=== PATIENT | female | born 1995 | race Caucasian/White ===

== ENCOUNTER 2016-12-21 21:30 | Emergency (ER) | payer OTHER ==
[~2016-12-21] VITALS: Ht 167.6 cm; Wt 109.6 kg
[~2016-12-21 21:30] MED LIST: ALBU1AER9 INH; Ibuprofen PO; WSTO TOP
[2016-12-21 21:52] VITALS: TEMP 36.8; Ht 167.6 cm; Wt 109.6 kg
[2016-12-21] MEDS ORDERED: IBUP-1428 PO (22:27)
[2016-12-21] MEDS: SODIUM CHLORIDE 0.9% 1000ML 1,000 ML IV STA ×2 (22:36→23:00)
[2016-12-21 22:56] LABS: BASO % 0.3 %; BASO ABS # 0.04 K/uL (0-0.2); COMPLETE YES; EOS % 0.7 %; HEMATOCRIT 42.1 % (37-47); IG% 0.3 %; LYMPH % 23.8 %; LYMPH ABS # 3.44 K/uL (1.2-3.4); MEAN CELL VOLUME 85.6 fL (80-100); MEAN CORPUSCULAR HEMOGLOBIN 29.5 pg (25-34); MEAN CORPUSCULAR HGB CONC 34.4 g/dl (32-36); MEAN PLATELET VOLUME 12.5 fL (7.4-10.4); MONO % 7.7 %; NEUT % 67.2 %; PLATELET COUNT 271 K/uL (130-400); RED BLOOD COUNT 4.92 M/uL (4.2-5.4); WHITE BLOOD COUNT 14.46 K/uL (4.8-10.8)
[2016-12-21 23:06] LABS: MANUAL MICROSCOPIC REQUIRED? NO; REVIEW REQ? NO; URINE APPEARANCE CLEAR (CLEAR); URINE BILIRUBIN NEG (NEG); URINE COLOR YELLOW; URINE EPITHELIAL CELL AUTO 0-5 /lpf (0-5); URINE NITRITE NEG (NEG); URINE PH 6.5 (4.5-7.5); URINE SPECIFIC GRAVITY 1.012 (1.000-1.030); UROBILINOGEN NEG (NEG); ZZUR CULT IF INDIC CLEAN CATCH NO
[2016-12-21 23:12] LABS: CALCIUM 8.8 mg/dl (8.5-10.1); CREATININE 0.75 mg/dl (0.60-1.20); POTASSIUM 3.5 mmol/L (3.5-5.1)
[2016-12-22] MEDS ORDERED: OPTIRAY 320 IV PRN (00:15)
[2016-12-22] MEDS ORDERED: KETOROLAC TROMETHAMINE 30 MG/ML VIAL IV STA (00:48)
--- NOTE | 2016-12-22 01:17 | EMERGENCY ROOM VISIT NOTE ---
History First contact with patient: 22:26 Chief Complaint: KIDNEY STONE Stated Complaint: POSSIBLE KIDNEY STONE, VOMITING History of Present Illness The patient is a 21 year old female who presents to the Emergency Room with complaints of right-sided flank pain ongoing for the past several weeks. The patient reports that she has had right-sided back pain with radiation into the flank and abdomen for the past several weeks. She states that she has also had nausea and vomiting after eating. She also states that at times, she has the urge to have a bowel movement immediately after eating. The patient does report a history of similar reactions to certain foods, but recently she has been symptomatic no matter what she eats. She does report a history of kidney stones but does not feel similar. She denies any history of abdominal surgeries. She has not seen any other providers for these issues. She rates her overall discomfort a 4/10 and has not been taking anything for pain. She denies urinary symptoms, vaginal discharge, blood in her stools or vomit, chest pain or shortness of breath. Review of Systems A complete 10-point Review of Systems was discussed with the patient, with pertinent positives and negatives listed in the History of Present Illness. All remaining Review of Systems questions can be considered negative unless otherwise specified. Social History Smoking Status: Current Every Day Smoker Current/Historical Medications Scheduled PRN Ibuprofen (Motrin), 800 MG PO Q8H PRN for Pain Allergies Coded Allergies: Thimerosal (Verified Allergy, Unknown, Unknown, 12/21/16) From flu vaccine Physical Exam Vital Signs Date Time Temp Pulse Resp B/P Pulse Ox O2 Delivery O2 Flow Rate FiO2 12/22/16 01:26 86 16 121/76 99 12/22/16 00:46 77 18 127/82 100 Room Air 12/21/16 21:52 36.8 87 20 139/93 98 Room Air Physical Exam VITALS: Vitals are noted on the nurse's note and reviewed by myself. Vital signs stable. GENERAL: This is a 21-year-old female, in no acute distress, nondiaphoretic, well-developed well-nourished. SKIN: Capillary reflex less than 2 seconds. HEART: Regular rate and rhythm without murmurs gallops or rubs. LUNGS: Clear to auscultation bilaterally without wheezes, rales or rhonchi. ABDOMEN: Positive bowel sounds x 4. Soft, with mild tenderness of the right upper quadrant. No guarding or rebound tenderness. Negative Lara sign. MUSCULOSKELETAL: No CVA tenderness. NEURO: Patient was alert and oriented to person place and time. Medical Decision & Procedures ER Provider Diagnostic Interpretation: US RUQ: Liver size is upper limits of normal. Gallbladder within normal limits. No ductal dilatation. Distal pancreas is obscured. Right kidney appears unremarkable. No free fluid. Radiologist: Khris Wheat M.D. CT ABDOMEN & PELVIS: No obstructing radiopaque urolithiasis or secondary sequela. Appendix within normal limits. Gallbladder unremarkable. 5 cm right paraovarian cyst. Indwelling vaginal tampon. Radiologist: Khris Wheat M.D. Laboratory Results 12/21/16 22:37 Red Blood Count 4.92, Mean Corpuscular Volume 85.6, Mean Corpuscular Hemoglobin 29.5, Mean Corpuscular Hemoglobin Concent 34.4, Mean Platelet Volume 12.5, Neutrophils (%) (Auto) 67.2, Lymphocytes (%) (Auto) 23.8, Monocytes (%) (Auto) 7.7, Eosinophils (%) (Auto) 0.7, Basophils (%) (Auto) 0.3, Neutrophils # (Auto) 9.72, Lymphocytes # (Auto) 3.44, Monocytes # (Auto) 1.12, Eosinophils # (Auto) 0.10, Basophils # (Auto) 0.04 12/21/16 22:37 Test 12/21/16 22:10 12/21/16 22:37 Urine Color YELLOW Urine Appearance CLEAR (CLEAR) Urine pH 6.5 (4.5-7.5) Urine Specific [place] 1.012 (1.000-1.030) Urine Protein NEG (NEG) Urine Glucose (UA) NEG (NEG) Urine Ketones NEG (NEG) Urine Occult Blood 3+ (NEG) Urine Nitrite NEG (NEG) Urine Bilirubin NEG (NEG) Urine Urobilinogen NEG (NEG) Urine Leukocyte Esterase NEG (NEG) Urine WBC (Auto) 1-5 /hpf (0-5) Urine RBC (Auto) 0-4 /hpf (0-4) Urine Hyaline Casts (Auto) 0 /lpf (0-5) Urine Epithelial Cells (Auto) 0-5 /lpf (0-5) Urine Bacteria (Auto) NEG (NEG) Urine Test NEG (NEG) White Blood Count 14.46 K/uL (4.8-10.8) Red Blood Count 4.92 M/uL (4.2-5.4) Hemoglobin 14.5 g/dL (12.0-16.0) Hematocrit 42.1 % (37-47) Mean Corpuscular Volume 85.6 fL (80-100) Mean Corpuscular Hemoglobin 29.5 pg (25-34) Mean Corpuscular Hemoglobin Concent 34.4 g/dl (32-36) Platelet Count 271 K/uL (130-400) Mean Platelet Volume 12.5 fL (7.4-10.4) Neutrophils (%) (Auto) 67.2 % Lymphocytes (%) (Auto) 23.8 % Monocytes (%) (Auto) 7.7 % Eosinophils (%) (Auto) 0.7 % Basophils (%) (Auto) 0.3 % Neutrophils # (Auto) 9.72 K/uL (1.4-6.5) Lymphocytes # (Auto) 3.44 K/uL (1.2-3.4) Monocytes # (Auto) 1.12 K/uL (0.11-0.59) Eosinophils # (Auto) 0.10 K/uL (0-0.5) Basophils # (Auto) 0.04 K/uL (0-0.2) RDW Standard Deviation 44.7 fL (36.4-46.3) RDW Coefficient of Variation 14.3 % (11.5-14.5) Immature Granulocyte % (Auto) 0.3 % Immature Granulocyte # (Auto) 0.04 K/uL (0.00-0.02) Anion Gap 10.0 mmol/L (3-11) Est Creatinine Clear Calc Drug Dose 148.7 ml/min Estimated GFR () 132.1 Estimated GFR (Non- 113.9 BUN/Creatinine Ratio 10.0 (10-20) Calcium Level 8.8 mg/dl (8.5-10.1) Total Bilirubin 0.4 mg/dl (0.2-1) Aspartate Amino Transf (AST/SGOT) 11 U/L (15-37) Alanine Aminotransferase (ALT/SGPT) 22 U/L (12-78) Alkaline Phosphatase 121 U/L (45-117) Total Protein 7.5 gm/dl (6.4-8.2) Albumin 3.8 gm/dl (3.4-5.0) Globulin 3.7 gm/dl (2.5-4.0) Albumin/Globulin Ratio 1.0 (0.9-2) Lipase 93 U/L (73-393) Medications Administered Medications (Trade) Dose Ordered Sig/Sandra Route Start Time Stop Time Status Last Admin Dose Admin Sodium Chloride (Nss 1000ml) 1,000 ml @ 999 mls/hr Q1H1M STAT IV 12/21/16 22:36 12/21/16 23:36 DC 12/21/16 23:00 999 MLS/HR Ketorolac Tromethamine (Toradol Inj) 30 mg NOW STAT IV 12/22/16 00:48 12/22/16 00:49 DC 12/22/16 00:48 30 MG Medical Decision Differential diagnosis includes biliary colic, pancreatitis, hepatitis, appendicitis, gastroenteritis, cholecystitis, ovarian cyst, burning torsion, urinary tract infection, kidney stone, pyelonephritis, among others. The patient was evaluated as above. Labs were drawn and IV access was obtained. Imaging studies were performed and read by radiology as above. The patient was medicated with 30 mg Toradol IV and 1 L normal saline solution. The patient was reassessed multiple times during their stay in the emergency department and remained in stable condition. The patient is a 21-year-old female who presents today complaining of right- sided abdominal pain. Labs revealed a mild leukocytosis, possibly secondary to the patient's vomiting. No anemia or concerning electrolyte abnormalities. Lipase was not elevated. LFTs and kidney functions were within normal limits. Urinalysis was not suggestive of infection. There was hematuria, but the patient is currently on her menstrual period. Urine was negative. Right upper quadrant ultrasound was initially performed and read by stat rad with no significant findings. CT of the abdomen and pelvis was then performed and also read by stat rad and did show a right-sided ovarian cyst, but no other concerning findings. The patient's pain may be secondary to the cyst, but it do feel she needs further follow-up and possibly gastroenterology consultation as the pain has been ongoing for such a long time. She will return for worsening symptoms. Based on the patient's presentation, lab results, and imaging studies, I feel the patient is stable for outpatient treatment. Discharge instructions were reviewed with the patient. The patient verbalized understanding of my assessment and treatment plan and was discharged home in good condition. Impression Primary Impression: Right ovarian cyst Departure Information Dispostion Home / Self-Care Condition GOOD Referrals Harry Ellison M.D. (PCP) Patient Instructions My [facility] Additional Instructions You have been treated in the Emergency Department for your Abdominal Pain. Laboratory results and imaging studies have ruled out any emergent causes for your abdominal pain which would warrant admission or surgery. For pain control, you can use the following [id number] medicines (if >12 yo): - Regular strength (325mg/tab) Tylenol (acetaminophen) 2 tabs every 4-6 hours as needed. Do not exceed 12 tablets in a 24 hour period. Avoid taking more than 4 grams (4000 mg) of Tylenol per day. This includes any other sources of acetaminophen you may take on a regular basis. - Regular strength (200 mg/tab) Advil (ibuprofen) 1-2 tabs every 4-6 hours as needed. Do not exceed a dose of 3200 mg per day. Drink plenty of water and stay well hydrated. As with any trip to the Emergency Department, you should follow-up with your Primary Care Provider within 2-3 days from today's visit. Return to the emergency department if your symptoms persist despite treatment plan outlined above or if the following symptoms occur: increased fevers, chills , worsening nausea/vomiting, blood in your stool or urine.
[2016-12-22 01:26] VITALS: BP 121/76; PULSE 86; O2SAT 99
--- NOTE | 2016-12-22 07:03 | DIAGNOSTIC IMAGING REPORT ---
CT OF THE ABDOMEN AND PELVIS WITH CONTRAST CLINICAL HISTORY: Right-sided abdominal pain and vomiting. COMPARISON STUDY: Right upper quadrant ultrasound December 21, 2016. TECHNIQUE: Following IV administration of 93 mL of Optiray-320, axial images of the abdomen and pelvis were obtained from the lung bases to the proximal femurs. Images were reviewed in the axial, sagittal, and coronal planes. IV contrast was administered without complication. CT DOSE: 1207.36 mGy.cm FINDINGS: Liver, spleen, adrenal glands, kidneys and pancreas are normal. There is no biliary or pancreatic ductal dilatation. There is no peripancreatic or pericholecystic infiltration. There is no hydronephrosis. Both nephrograms are symmetric. No urinary calculi are identified. The caliber and wall thickness of small and large bowel are normal. The appendix is normal. There is no lymphadenopathy. There is a 4.8 cm right ovarian or paraovarian cyst. A tampon is in place. Skeletal structures are unremarkable. IMPRESSION: 1. No acute process within the abdomen or pelvis. Normal appendix. 2. No hydronephrosis or urinary calculi identified. 3. 4.8 cm right ovarian/paraovarian cyst. Electronically signed by: Cliff Olson M.D. 12/22/2016 7:01 AM Dictated Date/Time: 12/22/2016 6:57 AM
--- NOTE | 2016-12-22 07:14 | DIAGNOSTIC IMAGING REPORT ---
ULTRASOUND RIGHT UPPER QUADRANT ABDOMEN CLINICAL HISTORY: Right upper quadrant abdominal pain.. COMPARISON STUDY: No priors. TECHNIQUE: Real-time, grayscale, and color flow sonography of the right upper quadrant of the abdomen was performed. Images are reviewed in the transverse and longitudinal planes. FINDINGS: Liver: The liver is normal in size and echotexture. There is no intrahepatic biliary ductal dilatation. The main portal vein is patent. Gallbladder: The gallbladder is normal in appearance. No gallstones are identified. There is no gallbladder wall thickening or pericholecystic fluid. A sonographic Lara's sign is reportedly absent. The common bile duct measures up to 0.3 cm in diameter. Pancreas: Visualized portions of the pancreatic head and body are normal in appearance. Right kidney: Survey images of the right kidney demonstrate normal size and echotexture. There is no hydronephrosis. Ascites: None. IMPRESSION: Unremarkable sonographic assessment of the right upper quadrant. No gallstones are identified. Electronically signed by: Ron Vu M.D. 12/22/2016 7:13 AM Dictated Date/Time: 12/22/2016 7:12 AM
== END 2016-12-22 01:27 | disposition home or self-care (01) ==
LOC: C.EDB 21:32 → C.EDA 12-22 01:27
DX: N83.201 Unspecified ovarian cyst, right side (principal); R11.2 Nausea with vomiting, unspecified; F17.200 Nicotine dependence, unspecified, uncomplicated; Z87.442 Personal history of urinary calculi

== ENCOUNTER 2017-04-09 20:18 | Emergency (ER) | payer OTHER ==
[~2017-04-09] VITALS: Ht 167.6 cm; Wt 107.4 kg
[~2017-04-09 20:18] MED LIST changes: -ALBU1AER9 INH; +IBUP-1428 PO; -Ibuprofen PO; -WSTO TOP
[2017-04-09 20:23] VITALS: TEMP 36.9; Ht 167.6 cm; Wt 107.4 kg
[2017-04-09] MEDS ORDERED: KETOROLAC TROMETHAMINE 30 MG/ML VIAL IV STA (20:46)
[2017-04-09] MEDS ORDERED: SODIUM CHLORIDE 0.9% 1000ML 1,000 ML IV STA (20:46)
[2017-04-09] MEDS ORDERED: HYDROmorphone INJ 1 MG/ML SYR IV STA (20:46)
[2017-04-09] MEDS ORDERED: METOCLOPRAMIDE HCL INJ 5 MG/ML 2 ML VIAL IV STA (20:46)
--- NOTE | 2017-04-09 20:52 | EMERGENCY ROOM VISIT NOTE ---
History Report prepared by Bentley: Miguel Pang Under the Supervision of: Dr. Kleber Arana M.D. First contact with patient: 20:40 Chief Complaint: NECK PAIN Stated Complaint: NECK PAIN RADIATING DOWN R SIDE History of Present Illness The patient is a 22 year old female who presents to the Emergency Room with complaints of intermittent neck pain that started last night. She describes the pain as cramping in nature and rates her discomfort as an 8/10 in severity. The pain radiates through the right side of her neck to her back. The patient reports she had a ovarian cyst surgically removed [address] Fermin. She has been taking Tylenol with Codeine with no relief. The patient admits that she has been experiencing some abdominal pain and has not had a bowel movement since before her surgery. She denies any history of other abdominal surgeries. Source of History: patient Onset: last night Position: neck, other Symptom Intensity: 8/10 Quality: cramping Timing: intermittent Associated Symptoms: + abdominal pain, + back pain Review of Systems See HPI for pertinent positives & negatives. A total of 10 systems reviewed and were otherwise negative. Past Medical & Surgical Surgical Problems: (1) History of removal of ovarian cyst Social History Smoking Status: Current Every Day Smoker Alcohol Use: occasionally Drug Use: none Marital Status: single Housing Status: lives with family Occupation Status: employed Current/Historical Medications Scheduled PRN Oxycodone/Acetaminophen 5MG/325MG (Percocet 5MG/325MG), 1-2 TAB PO Q4H PRN for Pain Allergies Coded Allergies: Latex (Unverified Allergy, Unknown, HIVES, 04/09/17) Thimerosal (Verified Allergy, Unknown, Unknown, 04/09/17) From flu vaccine Physical Exam Vital Signs Date Time Temp Pulse Resp B/P Pulse Ox O2 Delivery O2 Flow Rate FiO2 04/10/17 00:16 79 20 126/73 98 Room Air 04/09/17 22:13 63 12 131/83 98 Room Air 04/09/17 21:22 82 04/09/17 21:17 98 Room Air 04/09/17 21:17 98 Room Air 04/09/17 20:23 36.9 99 18 141/93 99 Room Air Physical Exam GENERAL: Patient is a healthy-appearing well-nourished HEAD: Normocephalic atraumatic EYES: Ocular movements intact pupils equal and react to light OROPHARYNX mucous membranes are moist no exudates present no erythema or edema present NECK: Supple no nuchal rigidity CHEST: Good equal expansion LUNGS: Clear and equal to auscultation CARDIAC: Normal S1 and S2 ABDOMEN: Abdominal pain. no guarding BACK: No CVA tenderness EXTREMITIES: No pain upon palpation normal muscle strength in all groups no clubbing cyanosis or edema NEURO: Patient is following commands is answering questions appropriately. Alert and oriented x3 Cranial Nerves 2-12 grossly intact Medical Decision & Procedures ER Provider Diagnostic Interpretation: Radiology results as stated below per my review and radiologist interpretation: SINGLE VIEW CHEST CLINICAL HISTORY: Atypical chest pain. FINDINGS: An AP, portable, upright chest radiograph is obtained. No prior studies are available for comparison at the time of dictation. The cardiomediastinal silhouette is unremarkable. The lungs and pleural spaces are clear. No pneumothorax is seen. The bony thorax is grossly intact. IMPRESSION: No active disease in the chest. Electronically signed by: Ron Vu M.D. 04/09/2017 10:38 PM Dictated Date/Time: 04/09/2017 10:[address] ABDOMEN & PELVIS: Small amount of free air right upper quadrant adjacent to the liver may be from recent surgical procedure, correlate with history Abdominal solids organs and gallbladder appear within limits No bowel dilation Normal caliber appendix contains oral contrast without secondary signs No free fluid Radiologist: Negrito López M.D. Study ready at 23:38 and initial results transmitted 23:56. Laboratory Results 04/09/17 21:15 Red Blood Count 4.84, Mean Corpuscular Volume 88.2, Mean Corpuscular Hemoglobin 29.1, Mean Corpuscular Hemoglobin Concent 33.0, Mean Platelet Volume 11.7, Neutrophils (%) (Auto) 68.7, Lymphocytes (%) (Auto) 23.4, Monocytes (%) (Auto) 6.5, Eosinophils (%) (Auto) 0.8, Basophils (%) (Auto) 0.3, Neutrophils # (Auto) 11.85, Lymphocytes # (Auto) 4.04, Monocytes # (Auto) 1.13, Eosinophils # (Auto) 0.14, Basophils # (Auto) 0.05 04/09/17 21:15 Test 04/09/17 21:15 04/09/17 21:23 04/09/17 21:40 White Blood Count 17.26 K/uL (4.8-10.8) Red Blood Count 4.84 M/uL (4.2-5.4) Hemoglobin 14.1 g/dL (12.0-16.0) Hematocrit 42.7 % (37-47) Mean Corpuscular Volume 88.2 fL (80-100) Mean Corpuscular Hemoglobin 29.1 pg (25-34) Mean Corpuscular Hemoglobin Concent 33.0 g/dl (32-36) Platelet Count 289 K/uL (130-400) Mean Platelet Volume 11.7 fL (7.4-10.4) Neutrophils (%) (Auto) 68.7 % Lymphocytes (%) (Auto) 23.4 % Monocytes (%) (Auto) 6.5 % Eosinophils (%) (Auto) 0.8 % Basophils (%) (Auto) 0.3 % Neutrophils # (Auto) 11.85 K/uL (1.4-6.5) Lymphocytes # (Auto) 4.04 K/uL (1.2-3.4) Monocytes # (Auto) 1.13 K/uL (0.11-0.59) Eosinophils # (Auto) 0.14 K/uL (0-0.5) Basophils # (Auto) 0.05 K/uL (0-0.2) RDW Standard Deviation 45.2 fL (36.4-46.3) RDW Coefficient of Variation 14.0 % (11.5-14.5) Immature Granulocyte % (Auto) 0.3 % Immature Granulocyte # (Auto) 0.05 K/uL (0.00-0.02) Anion Gap 7.0 mmol/L (3-11) Est Creatinine Clear Calc Drug Dose 145.8 ml/min Estimated GFR () 131.1 Estimated GFR (Non- 113.1 BUN/Creatinine Ratio 11.3 (10-20) Calcium Level 9.4 mg/dl (8.5-10.1) Total Bilirubin 0.4 mg/dl (0.2-1) Direct Bilirubin < 0.1 mg/dl (0-0.2) Aspartate Amino Transf (AST/SGOT) 12 U/L (15-37) Alanine Aminotransferase (ALT/SGPT) 23 U/L (12-78) Alkaline Phosphatase 113 U/L (45-117) Total Creatine Kinase 23 U/L (26-192) Creatine Kinase MB < 0.5 ng/ml (0.5-3.6) Creatine Kinase MB Ratio (0-3.0) Troponin I < 0.015 ng/ml (0-0.045) Total Protein 7.6 gm/dl (6.4-8.2) Albumin 3.5 gm/dl (3.4-5.0) Lipase 95 U/L (73-393) Human Chorionic Gonadotropin, Qual NEG (NEG) Bedside D-Dimer 384 ng/mlFEU (0-450) Urine Color ORANGE Urine Appearance CLOUDY (CLEAR) Urine pH 7.5 (4.5-7.5) Urine Specific [place] 1.015 (1.000-1.030) Urine Protein NEG (NEG) Urine Glucose (UA) NEG (NEG) Urine Ketones NEG (NEG) Urine Occult Blood 3+ (NEG) Urine Nitrite NEG (NEG) Urine Bilirubin NEG (NEG) Urine Urobilinogen NEG (NEG) Urine Leukocyte Esterase TRACE (NEG) Urine WBC (Auto) 1-5 /hpf (0-5) Urine RBC (Auto) >30 /hpf (0-4) Urine Hyaline Casts (Auto) 0 /lpf (0-5) Urine Epithelial Cells (Auto) 20-30 /lpf (0-5) Urine Bacteria (Auto) NEG (NEG) Labs reviewed by ED physician. Medications Administered Medications (Trade) Dose Ordered Sig/Sandra Route Start Time Stop Time Status Last Admin Dose Admin Sodium Chloride (Nss 1000ml) 1,000 ml @ 999 mls/hr Q1H1M STAT IV 04/09/17 20:46 04/09/17 21:46 DC 04/09/17 21:18 999 MLS/HR Ketorolac Tromethamine (Toradol Inj) 30 mg NOW STAT IV 04/09/17 20:46 04/09/17 20:50 DC 04/09/17 21:29 30 MG Oxycodone/ Acetaminophen (Percocet 5/ 325MG Home Pack) 1 homepack UD STAT PO 04/10/17 00:04 04/10/17 00:05 DC 04/10/17 00:15 1 HOMEPACK ECG Indication: abdominal pain Rate (beats per minute): 76 Rhythm: sinus with SA Findings: no acute ischemic change, no ectopy ED Course 2042: Past medical records reviewed. The patient was evaluated in room A10. A complete history and physical examination was performed. 2045: Toradol 30 mg IV, NSS 1000 ml @ 999 mls/hr IV. 0004: Oxycodone/ Acetaminophen 1 homepack PO. 0009: Upon reexamination the patient is doing well. I discussed results and treatment plan with the patient. She verbalizes agreement and understanding. The patient is ready for discharge. Medical Decision Medication Reconciliation: I attest that I have personally reviewed the patient' s current medication list Blood Pressure Screening: Patient was found to have an elevated blood pressure and was referred to their primary care doctor for recheck and further treatment Differential diagnosis: Etiologies such as appendicitis, diverticulitis, PUD, biliary pathology, UTI, pancreatitis, obstruction, mesenteric ischemia, aortic pathology, infections, inflammatory bowel disease, renal colic, as well as others were entertained. This is a 22-year-old female who presents emergency department complaining of abdominal pain after recently having ovarian surgery. Serial abdominal examinations were performed on the patient in the emergency department and at no tender the patient exhibit surgical abdomen or abdominal tenderness. Her surgical wounds appear to be healing fine. The patient does have an elevation in her white blood count however has no evidence of infection and upon reporting this to the patient she replied that her white blood cell count is consistently elevated. CT the abdomen pelvis is concerning for free air which I believe would be consistent with the patient's surgery and I also believe that this free air versus possible for the patient feeling pain in her right shoulder and neck. Based on physical exam findings as well as a CAT scan I do believe that the patient is well enough to be discharged home for follow-up with the primary care physician. Patient was in agreement with the treatment plan. Impression Primary Impression: Abdominal pain Scribe Attestation The scribe's documentation has been prepared under my direction and personally reviewed by me in its entirety. I confirm that the note above accurately reflects all work, treatment, procedures, and medical decision making performed by me. Departure Information Dispostion Home / Self-Care Prescriptions Oxycodone/Acetaminophen 5MG/325MG (PERCOCET 5MG/325MG) Tab 1-2 TAB PO Q4H Y for Pain, #14 TAB Prov: Sumit, Kleber M., MD 04/10/17 Referrals No Doctor, Assigned (PCP) Forms HOME CARE DOCUMENTATION FORM, IMPORTANT VISIT INFORMATION, WORK / SCHOOL INSTRUCTIONS Patient Instructions ED Abd Pain Unkn Cause Fem, My [facility] Additional Instructions Need follow up with Dr Ellison You have been examined and treated today on an emergency basis only. This is not a substitute for, or an effort to provide, complete comprehensive medical care. It is impossible to recognize and treat all injuries or illnesses in a single emergency department visit. It is therefore important that you follow up closely with [facility]. Call as soon as possible for an appointment. Thank you for your time and consideration. I look forward to speaking with you again soon. Please don't hesitate to call us if you have any questions. Problem Qualifiers Primary Impression: Abdominal pain Abdominal location: unspecified location Qualified Codes: R10.9 - Unspecified abdominal pain
[2017-04-09] MEDS ORDERED: OPTIRAY 320 IV PRN (21:15)
[2017-04-09 21:17] VITALS: O2SAT 98
[2017-04-09 21:29] LABS: BASO % 0.3 %; BASO ABS # 0.05 K/uL (0-0.2); COMPLETE YES; EOS % 0.8 %; HEMATOCRIT 42.7 % (37-47); IG% 0.3 %; LYMPH % 23.4 %; LYMPH ABS # 4.04 K/uL (1.2-3.4); MEAN CELL VOLUME 88.2 fL (80-100); MEAN CORPUSCULAR HEMOGLOBIN 29.1 pg (25-34); MEAN PLATELET VOLUME 11.7 fL (7.4-10.4); MONO % 6.5 %; NEUT % 68.7 %; PLATELET COUNT 289 K/uL (130-400); RED BLOOD COUNT 4.84 M/uL (4.2-5.4); WHITE BLOOD COUNT 17.26 K/uL (4.8-10.8)
[2017-04-09 21:46] LABS: ALT/SGPT 23 U/L (12-78); BLOOD UREA NITROGEN 9 mg/dl (7-18); BUN/CREATININE RATIO 11.3 (10-20); CARBON DIOXIDE 28 mmol/L (21-32); CHLORIDE 103 mmol/L (98-107); CREATININE 0.75 mg/dl (0.60-1.20); GLUCOSE 88 mg/dl (70-99); POTASSIUM 3.8 mmol/L (3.5-5.1); SODIUM 138 mmol/L (136-145)
[2017-04-09 21:51] LABS: ALKALINE PHOSPHATASE 113 U/L (45-117); AST/SGOT 12 U/L (15-37)
[2017-04-09 21:54] LABS: PREG INTERNAL NEGATIVE QC NEG CLEAR BACKGROUND; PREG INTERNAL POSITIVE QC POS CONTROL LINE
[2017-04-09 22:27] LABS: CALCIUM 9.4 mg/dl (8.5-10.1)
--- NOTE | 2017-04-09 22:39 | DIAGNOSTIC IMAGING REPORT ---
SINGLE VIEW CHEST CLINICAL HISTORY: Atypical chest pain. FINDINGS: An AP, portable, upright chest radiograph is obtained. No prior studies are available for comparison at the time of dictation. The cardiomediastinal silhouette is unremarkable. The lungs and pleural spaces are clear. No pneumothorax is seen. The bony thorax is grossly intact. IMPRESSION: No active disease in the chest. Electronically signed by: Ron Vu M.D. 04/09/2017 10:38 PM Dictated Date/Time: 04/09/2017 10:38 PM
[2017-04-09 23:01] LABS: URINE APPEARANCE CLOUDY (CLEAR); URINE BILIRUBIN NEG (NEG); URINE COLOR ORANGE; URINE EPITHELIAL CELL AUTO 20-30 /lpf (0-5); URINE NITRITE NEG (NEG); URINE PH 7.5 (4.5-7.5); URINE SPECIFIC GRAVITY 1.015 (1.000-1.030); UROBILINOGEN NEG (NEG); ZZUR CULT IF INDIC CLEAN CATCH NO
[2017-04-09 23:25] LABS: MANUAL MICROSCOPIC REQUIRED? NO; REVIEW REQ? NO
[2017-04-10] MEDS ORDERED: PERCOCET HOME PACK PO STA (00:04)
[2017-04-10] MEDS ORDERED: OXYC-57 PO (00:05)
[2017-04-10 00:16] VITALS: BP 126/73; PULSE 79; O2SAT 98
--- NOTE | 2017-04-10 06:54 | DIAGNOSTIC IMAGING REPORT ---
CT OF THE ABDOMEN AND PELVIS WITH CONTRAST CLINICAL HISTORY: Diffuse abd pain s/p oophorectomy COMPARISON STUDY: CT of the abdomen and pelvis December 22, 2016. TECHNIQUE: Following IV administration of 119 mL of Optiray-320, axial images of the abdomen and pelvis were obtained from the lung bases to the proximal femurs. Images were reviewed in the axial, sagittal, and coronal planes. IV contrast was administered without complication. Oral contrast was administered. CT DOSE: 1115.11 mGy.cm FINDINGS: There is a small amount of pneumoperitoneum within the upper abdomen. The liver, spleen, adrenal glands, kidneys and pancreas are normal. There is no evidence for a bowel obstruction. The appendix is normal. There is no fluid collection to suggest an abscess. There is no free fluid. Skeletal structures are unremarkable. There is no lymphadenopathy. There is no hydronephrosis. IMPRESSION: Small amount of pneumoperitoneum which is likely postsurgical. No significant abnormality within the abdomen or pelvis status post recent surgery. Electronically signed by: Cliff Olson M.D. 04/10/2017 6:53 AM Dictated Date/Time: 04/10/2017 6:50 AM
== END 2017-04-10 00:21 | disposition home or self-care (01) ==
LOC: C.EDB 20:19 → C.EDA 04-10 00:21
DX: R10.9 Unspecified abdominal pain (principal); F17.200 Nicotine dependence, unspecified, uncomplicated; Z98.890 Other specified postprocedural states; D72.829 Elevated white blood cell count, unspecified

== ENCOUNTER 2017-06-27 00:27 | Emergency (ER) | payer OTHER ==
[~2017-06-27] VITALS: Ht 167.6 cm; Wt 109.4 kg
[~2017-06-27 00:27] MED LIST changes: -IBUP-1428 PO; +OXYC-57 PO
[2017-06-27 00:31] VITALS: TEMP 36.7; Ht 167.6 cm; Wt 109.4 kg
[2017-06-27 01:04] LABS: URINE APPEARANCE CLOUDY (CLEAR); URINE BILIRUBIN NEG (NEG); URINE COLOR YELLOW; URINE EPITHELIAL CELL AUTO >30 /lpf (0-5); URINE NITRITE NEG (NEG); URINE SPECIFIC GRAVITY 1.025 (1.000-1.030); UROBILINOGEN NEG (NEG); ZZUR CULT IF INDIC CLEAN CATCH YES
[2017-06-27 01:05] LABS: BASO % 0.3 %; BASO ABS # 0.04 K/uL (0-0.2); COMPLETE YES; EOS % 1.4 %; HEMATOCRIT 39.3 % (37-47); IG% 0.2 %; LYMPH % 28.1 %; LYMPH ABS # 4.15 K/uL (1.2-3.4); MEAN CELL VOLUME 86.6 fL (80-100); MEAN CORPUSCULAR HEMOGLOBIN 29.5 pg (25-34); MEAN CORPUSCULAR HGB CONC 34.1 g/dl (32-36); MEAN PLATELET VOLUME 11.5 fL (7.4-10.4); MONO % 7.2 %; NEUT % 62.8 %; PLATELET COUNT 267 K/uL (130-400); RED BLOOD COUNT 4.54 M/uL (4.2-5.4); WHITE BLOOD COUNT 14.78 K/uL (4.8-10.8)
[2017-06-27 01:06] LABS: MANUAL MICROSCOPIC REQUIRED? NO; REVIEW REQ? NO
[2017-06-27 01:22] LABS: BUN/CREATININE RATIO 17.5 (10-20); CREATININE 0.67 mg/dl (0.60-1.20); POTASSIUM 3.8 mmol/L (3.5-5.1)
[2017-06-27] MEDS ORDERED: IBUP-1451 PO (01:28)
[2017-06-27 01:48] LABS: PREG INTERNAL NEGATIVE QC NEG CLEAR BACKGROUND; PREG INTERNAL POSITIVE QC POS CONTROL LINE
--- NOTE | 2017-06-27 04:53 | EMERGENCY ROOM VISIT NOTE ---
History First contact with patient: 00:31 Chief Complaint: ABDOMINAL PAIN Stated Complaint: RIGHT ABD PAIN, NAUSEA Nursing Triage Summary: pt ambulates to triage reports 3-4 weeks of abdominal pain with nausea and diarrhea , pt states "it did not get worse today I am just sick of it and decided to get checked " pt reports hx of ovarian cyst on R side and was drained 1 month ago " this feels like same pain " History of Present Illness The patient is a 22 year old female who presents to the Emergency Room with complaints of nausea, diarrhea and right lower quadrant suprapubic pain for the past month. Patient had a ovarian cyst removed a few months ago. She follows with OB in [place]. Patient is concerned she might be . She is requesting a test. Pain currently 4 out of 10. Nothing makes it better or worse. No recent antibiotics. No well water. Patient states she has 6-7 episodes of diarrhea today that is nonbloody non-mucousy nonblack and tarry in nature. Patient denies chest pain, dyspnea, fevers, vomiting, urinary symptoms, back pain, vaginal itching or discharge. She does not feel at risk for STIs. Review of Systems See HPI for pertinent positives & negatives. A total of 10 systems reviewed and were otherwise negative. Past Medical/Surgical History Surgical Problems: (1) History of removal of ovarian cyst Social History Smoking Status: Current Every Day Smoker Alcohol Use: occasionally Drug Use: none Marital Status: single Housing Status: lives with family Occupation Status: employed Current/Historical Medications Scheduled Ibuprofen Tab (Motrin), 800 MG PO DAILY Sulfa/Trimethoprim (Bactrim Ds 800MG/160MG), 1 TAB PO BID Physical Exam Vital Signs Date Time Temp Pulse Resp B/P (MAP) Pulse Ox O2 Delivery O2 Flow Rate FiO2 06/27/17 03:28 65 18 128/73 97 Room Air 06/27/17 00:31 36.7 88 18 135/88 99 Room Air Physical Exam VITALS: Vitals are noted on the nurse's note and reviewed by myself. Vital signs stable. GENERAL: Pleasant female, in no acute distress, nondiaphoretic, well-developed well-nourished. SKIN: The skin was without rashes, erythema, edema, or bruising. There is no tenting of the skin. Capillary reflex less than 2 seconds. HEAD: Normocephalic atraumatic. EARS: External auditory canals clear, tympanic membranes pearly caicedo without erythema or effusion bilaterally. EYES: Pupils equal round and reactive to light and accommodation. Conjunctivae without injection, sclerae without icterus. Extraocular movements intact. NOSE: Patent, turbinates without inflammation or discharge. MOUTH: Mucous membranes moist. Pharynx without erythema or exudate. Uvula midline. Airway patent. Tongue does not deviate. NECK: Supple without nuchal rigidity. No lymphadenopathy. No thyromegaly. Cervical spine is nontender. No JVD. HEART: Regular rate and rhythm without murmurs gallops or rubs. LUNGS: Clear to auscultation bilaterally without wheezes, rales or rhonchi. No dullness to percussion. No retractions or accessory muscle use. ABDOMEN: Positive bowel sounds x 4. Normal tympanic percussion. Soft, suprapubic right lower quadrant tenderness, protuberant, obese, no CVA tenderness, without masses or organomegaly. Lara sign negative. No guarding or rebound tenderness. MUSCULOSKELETAL: No muscle atrophy, erythema, or edema noted. NEURO: Patient was alert and oriented to person place and time. Normal sensation to light and sharp touch. No focal neurological deficits. Medical Decision & Procedures Laboratory Results 06/27/17 00:50 Red Blood Count 4.54, Mean Corpuscular Volume 86.6, Mean Corpuscular Hemoglobin 29.5, Mean Corpuscular Hemoglobin Concent 34.1, Mean Platelet Volume 11.5, Neutrophils (%) (Auto) 62.8, Lymphocytes (%) (Auto) 28.1, Monocytes (%) (Auto) 7.2, Eosinophils (%) (Auto) 1.4, Basophils (%) (Auto) 0.3, Neutrophils # (Auto) 9.30, Lymphocytes # (Auto) 4.15, Monocytes # (Auto) 1.06, Eosinophils # (Auto) 0.20, Basophils # (Auto) 0.04 06/27/17 00:50 Test 06/27/17 00:15 06/27/17 00:50 Urine Color YELLOW Urine Appearance CLOUDY (CLEAR) Urine pH 6.0 (4.5-7.5) Urine Specific [place] 1.025 (1.000-1.030) Urine Protein NEG (NEG) Urine Glucose (UA) NEG (NEG) Urine Ketones NEG (NEG) Urine Occult Blood NEG (NEG) Urine Nitrite NEG (NEG) Urine Bilirubin NEG (NEG) Urine Urobilinogen NEG (NEG) Urine Leukocyte Esterase TRACE (NEG) Urine WBC (Auto) 10-30 /hpf (0-5) Urine RBC (Auto) 10-30 /hpf (0-4) Urine Hyaline Casts (Auto) 5-10 /lpf (0-5) Urine Epithelial Cells (Auto) >30 /lpf (0-5) Urine Bacteria (Auto) 2+ (NEG) White Blood Count 14.78 K/uL (4.8-10.8) Red Blood Count 4.54 M/uL (4.2-5.4) Hemoglobin 13.4 g/dL (12.0-16.0) Hematocrit 39.3 % (37-47) Mean Corpuscular Volume 86.6 fL (80-100) Mean Corpuscular Hemoglobin 29.5 pg (25-34) Mean Corpuscular Hemoglobin Concent 34.1 g/dl (32-36) Platelet Count 267 K/uL (130-400) Mean Platelet Volume 11.5 fL (7.4-10.4) Neutrophils (%) (Auto) 62.8 % Lymphocytes (%) (Auto) 28.1 % Monocytes (%) (Auto) 7.2 % Eosinophils (%) (Auto) 1.4 % Basophils (%) (Auto) 0.3 % Neutrophils # (Auto) 9.30 K/uL (1.4-6.5) Lymphocytes # (Auto) 4.15 K/uL (1.2-3.4) Monocytes # (Auto) 1.06 K/uL (0.11-0.59) Eosinophils # (Auto) 0.20 K/uL (0-0.5) Basophils # (Auto) 0.04 K/uL (0-0.2) RDW Standard Deviation 43.5 fL (36.4-46.3) RDW Coefficient of Variation 13.7 % (11.5-14.5) Immature Granulocyte % (Auto) 0.2 % Immature Granulocyte # (Auto) 0.03 K/uL (0.00-0.02) Anion Gap 10.0 mmol/L (3-11) Est Creatinine Clear Calc Drug Dose 164.9 ml/min Estimated GFR () 144.6 Estimated GFR (Non- 124.8 BUN/Creatinine Ratio 17.5 (10-20) Calcium Level 9.0 mg/dl (8.5-10.1) Human Chorionic Gonadotropin, Qual NEG (NEG) ED Course Prior records/ancillary studies reviewed. Triage Nursing notes reviewed. The patient's history was concerning for abdominal pain. Differential diagnosis: Etiologies such as stool impaction, cyst, torsion, PID, appendicitis, diverticulitis, PUD, biliary pathology, UTI, pancreatitis, obstruction, mesenteric ischemia, aortic pathology, infections, inflammatory bowel disease, renal colic, as well as others were entertained. Physical examination findings: As above. ER treatment provided: Patient was observed On reassessment the patient felt better. Diagnostics interpreted by me: The labs revealed negative hCG. Urine concerning for infection sent for culture Chronic leukocytosis unchanged per chart review Imaging studies: US PELVIC/ENDOVAG: The uterus is normal in size. The endometrium is normal in thickness. Nabothian cysts. Right ovary measures 2.3 x 1.8 x 2.3 cm and there is a right paraovarian cyst measuring up to 1 cm. Left ovary measures 2.5 x 1.5 x 2.4 cm and contains a dominant follicle measuring 1.4 cm. Blood flow demonstrated in bilateral ovaries. No free fluid in the pelvis. Radiologist: Shon Szymanski MD Exam and history seem consistent with ongoing chronic right lower quadrant superpubic pain. Urine appears contaminated patient has no UTI symptoms. A urine culture was placed. Patient was unable to give a stool specimen. Patient had pain for over a month. I do not believe this is appendicitis. She does CT scan recently that was completely normal. Patient does not want a CT scan today. I felt this is reasonable. Patient was advised to follow back up with her OB doctor and family doctor in a few days or here in the ER sooner for abdominal pain, fevers, vomiting, worsening signs or symptoms or as needed. Patient was unable to give stool specimen despite the fact that she states she' s been having 6-7 episodes a day. Patient did not have acute abdomen on exam. She is well-appearing. She is tolerating fluids. She ate without difficulties. By the evaluation outlined above emergent etiologies such as appendicitis, diverticulitis, PUD, biliary pathology, pancreatitis, obstruction , mesenteric ischemia, aortic pathology, infections, inflammatory bowel disease , renal colic, as well as others were deemed relatively unlikely. The pt informed about the findings as listed above. All questions were answered and pleased with the treatment. Return instructions were outlined and the patient was discharged in stable condition. Outpatient prescription management: HARRY Nur Referral: The patient was referred back to their primary care physician and [employer] for follow-up in 2 to 3 days for a recheck of the current condition. Case reviewed by attending. Medical Decision As above Medication Reconcilliation Current Medication List: was personally reviewed by me Blood Pressure Screening Patient's blood pressure: Normal blood pressure Impression Primary Impression: Right ovarian cyst Additional Impressions: UTI (urinary tract infection) Suprapubic abdominal pain Departure Information Dispostion Home / Self-Care Condition GOOD Prescriptions Sulfa/Trimethoprim (Bactrim Ds 800MG/160MG) Tab 1 TAB PO BID for 3 Days, #6 TAB Prov: Cathryn Simmons .JACK 06/27/17 Referrals Harry Ellison M.D. (PCP) Patient Instructions My [facility] Additional Instructions You chronically have an elevation in the white blood count. Follow-up with family care for this. Repeat pelvic ultrasound in 6 weeks for resolution of cyst. Ibuprofen(Motrin, Advil) may be used for fever or pain. Use 600mg every six hours as needed. Take with food. Avoid using more than 2400mg in a 24 hour period. Do not use 2400mg per day for more than three consecutive days without physician direction. Prolonged inappropriate use can lead to stomach upset or ulcers. (AND/OR) Acetaminophen(Tylenol) may be used for fever or pain. Use 1000mg every six hours as needed. Avoid using more than 3000mg in a 24 hour period. Trimethoprim-Sulfamethoxazole(Bactrim DS): Take one pill twice daily for 3 days for your urine infection. All antibiotics can cause diarrhea. If this occurs and you feel worse or it does not resolve in 1-2 days follow up with your doctor or return to the Emergency Department as this could be signs of serious underlying problems. Any medication can cause an allergic reaction, stop the pills immediately and return to the ER for rash, hives, breathing difficulties, or swelling. Rest and drink plenty of fluids as tolerated. Slow sips of water or sports drinks are recommended instead of large amounts all at once. Continue current medications. Once your stomach is settled start with a clear liquid diet (jello, soup broth, etc.) and then advance as tolerated. You should avoid full, heavy meals for about 24 hrs from the time your symptoms resolved. Return to the ER immediately for worsening or persistent abdominal/back pain, vomiting, fevers, worsening of your condition, or as needed. 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 Problem Qualifiers
[2017-06-27] MEDS ORDERED: SULF800T23 PO (04:54)
[2017-06-27] MEDS ORDERED: SEPTRA DS HOME PACK 1 EA VIAL PO ONE (05:00)
[2017-06-27 05:13] VITALS: BP 114/75; PULSE 71; O2SAT 98
--- NOTE | 2017-06-27 07:28 | DIAGNOSTIC IMAGING REPORT ---
PELVIC COMPLETE NON OB CLINICAL HISTORY: 22 years-old Female presenting with pelvic pain, hx cyst, last menstrual period 06/14/2017. TECHNIQUE: Real-time grayscale and color and spectral Doppler ultrasound imaging of the pelvis was performed first using a transabdominal probe and subsequently transvaginal for better characterization. COMPARISON: CT from 04/09/2017. FINDINGS: Uterus: Normal. Anteverted. The uterus measures 8.5 x 2.1 x 5.0 cm. Endometrial stripe measures 9 mm in thickness. Endometrium normal-appearing. Cervix contains a round hypoechoic avascular slice hypovascular lesion, also likely nabothian cyst. Several additional similar-appearing nabothian cysts also noted. Right adnexa: Right ovary normal. Right ovary measures 2.3 x 1.8 x 2.3 cm. Normal color Doppler flow and arterial and venous waveforms within the ovarian parenchyma. 1 cm anechoic avascular paraovarian cyst. Left adnexa: Left ovary with dominant follicle. Left ovary measures 2.5 x 1.5 x 2.4 cm. Normal color Doppler flow and arterial and venous waveforms within the ovarian parenchyma. Other: No free fluid. IMPRESSION: 1. No significant abnormality identified within the pelvis. 2. 1 cm paraovarian cyst, which is almost certainly benign and of doubtful clinical significance. Electronically signed by: Robbie Ricardo M.D. 06/27/2017 7:27 AM Dictated Date/Time: 06/27/2017 7:23 AM
== END 2017-06-27 05:14 | disposition home or self-care (01) ==
LOC: C.EDB 00:28
DX: N83.201 Unspecified ovarian cyst, right side (principal); N39.0 Urinary tract infection, site not specified; R10.30 Lower abdominal pain, unspecified; R11.0 Nausea; R19.7 Diarrhea, unspecified; F17.200 Nicotine dependence, unspecified, uncomplicated

== ENCOUNTER 2017-11-11 19:25 | Emergency (ER) | payer SELFPAY ==
[~2017-11-11] VITALS: Ht 167.6 cm; Wt 110.0 kg
[~2017-11-11 19:25] MED LIST changes: +IBUP-1451 PO; -OXYC-57 PO
[2017-11-11 19:28] VITALS: TEMP 36.7; Ht 167.6 cm; Wt 110.0 kg
[2017-11-11 19:58] LABS: BASO % 0.4 %; BASO ABS # 0.06 K/uL (0-0.2); EOS ABS # 0.14 K/uL (0-0.5); HEMATOCRIT 41.1 % (37-47); IG# 0.03 K/uL (0.00-0.02); LYMPH % 28.3 %; LYMPH ABS # 4.11 K/uL (1.2-3.4); MEAN CELL VOLUME 87.6 fL (80-100); MEAN CORPUSCULAR HEMOGLOBIN 29.9 pg (25-34); MEAN CORPUSCULAR HGB CONC 34.1 g/dl (32-36); MEAN PLATELET VOLUME 11.6 fL (7.4-10.4); MONO ABS # 1.16 K/uL (0.11-0.59); NEUT % 62.1 %; NEUT ABS # 9.03 K/uL (1.4-6.5); PLATELET COUNT 276 K/uL (130-400); RED CELL DISTRIBUTION WIDTH CV 13.7 % (11.5-14.5); RED CELL DISTRIBUTION WIDTH SD 43.4 fL (36.4-46.3); WHITE BLOOD COUNT 14.53 K/uL (4.8-10.8)
[2017-11-11 20:15] LABS: ALT/SGPT 27 U/L (12-78); AST/SGOT 11 U/L (15-37); BLOOD UREA NITROGEN 10 mg/dl (7-18); CALCIUM 9.2 mg/dl (8.5-10.1); CARBON DIOXIDE 27 mmol/L (21-32); GLUCOSE 91 mg/dl (70-99); LIPASE 100 U/L (73-393); POTASSIUM 3.5 mmol/L (3.5-5.1); SODIUM 137 mmol/L (136-145)
[2017-11-11 20:18] LABS: ALKALINE PHOSPHATASE 121 U/L (45-117); TOTAL PROTEIN 8.2 gm/dl (6.4-8.2)
--- NOTE | 2017-11-11 20:31 | EMERGENCY ROOM VISIT NOTE ---
ED Visit Note EMERGENCY DEPARTMENT PROCEDURE NOTE: I was asked by Dr. Martínez to perform a pelvic exam on this 22-year-old white female patient who had requested a female provider. Please refer to their dictation for the complete history, physical exam, and ED course. EMERGENCY DEPARTMENT COURSE: Pelvic Exam was performed with female nurse cell attendant helper present at all times. External genitalia are normal, no rashes or lesions appreciated. Vagina with scant bloody discharge Cervix is without lesions, no cervical motion tenderness. The uterus is small, nontender The adnexa no masses, nontender Bimanual exam difficult secondary to body habitus. Cervix was cleaned thoroughly with several cotton swabs, then endocervical swab for Chlamydia/ gonorrhea was obtained. Swab for Trichomonas and vaginal Gram stain were also performed.
--- NOTE | 2017-11-11 20:37 | EMERGENCY ROOM VISIT NOTE ---
History Report prepared by Bentley: Yara York Under the Supervision of: Dr. Tyron Martínez D.O. First contact with patient: 19:29 Chief Complaint: URINARY SYMPTOMS Stated Complaint: BURNING AND DISCOFORT WHEN URINATING, LWR BELLY DI Nursing Triage Summary: having lower back pain and lower abdominal pain. urinary frequency and pain with urination for the past couple days History of Present Illness The patient is a 22 year old female who presents to the Emergency Room with complaints of persistent urinary symptoms two days CONTACT REPRESENTATIVE. She notes frequent urination and a burning sensation with urination. She notes abdominal pain and back pain. She currently rates her pain a 6/10 in severity. Her back pain does not radiate. She notes vaginal discharge that is white in color, which began four days ago. She notes that she had similar discharge last month. She has had a UTI in the past, though feels these symptoms are worse. She notes she is currently on her menstrual cycle. Her LNMP was four weeks ago. She has a history of ovarian cysts. She notes a history of laparoscopic surgery to remove a cyst. She notes that she is sexually active with a single partner. She denies any history of STDs. Pt denies headache, change in vision, fevers, chest pain, shortness of breath, nausea, vomiting, diarrhea, and melena. Source of History: patient Onset: two days CONTACT REPRESENTATIVE Position: other (global ) Symptom Intensity: 6/10 Quality: other (urinary symptoms) Timing: other (persistent) Associated Symptoms: + abdominal pain, + back pain, + urinary symptoms ( frequent urination, burning sensation), No fevers, No headache, No chest pain, No SOB, No nausea, No vomiting, No melena, No diarrhea Note: She notes vaginal discharge that is white in color. She denies any changes in vision. Review of Systems See HPI for pertinent positives & negatives. A total of 10 systems reviewed and were otherwise negative. Past Medical & Surgical Medical Problems: (1) Ovarian cyst Surgical Problems: (1) History of removal of ovarian cyst Family History No pertinent family history reported. Social History Smoking Status: Never Smoker Alcohol Use: occasionally Drug Use: none Marital Status: single Housing Status: lives with family Occupation Status: employed Current/Historical Medications Scheduled Ibuprofen Tab (Motrin), 800 MG PO DAILY Sulfa/Trimethoprim (Bactrim Ds 800MG/160MG), 1 TAB PO BID Allergies Coded Allergies: Latex (Unverified Allergy, Unknown, HIVES, 06/27/17) Thimerosal (Verified Allergy, Unknown, Unknown, 06/27/17) From flu vaccine Physical Exam Vital Signs Date Time Temp Pulse Resp B/P (MAP) Pulse Ox O2 Delivery O2 Flow Rate FiO2 11/11/17 22:16 77 18 121/71 98 11/11/17 21:25 70 18 129/80 99 Room Air 11/11/17 19:28 36.7 77 18 137/89 99 Room Air Physical Exam GENERAL: Sitting up in bed, alert, well appearing, well nourished, no distress, non-toxic EYE EXAM: normal conjunctiva. OROPHARYNX: no exudate, no erythema, lips, buccal mucosa, and tongue normal and mucous membranes are moist NECK: supple, no nuchal rigidity, no adenopathy, non-tender LUNGS: Clear to auscultation. Normal chest wall mechanics HEART: no murmurs, S1 normal and S2 normal ABDOMEN: abdomen soft, non-tender, normo-active bowel sounds, no masses, no rebound or guarding. BACK: Back is symmetrical on inspection and there is no deformity, no midline tenderness, no CVA tenderness. Faint reproducible tenderness in right SI joint. : The patient's pelvic exam was normal per PA-C. Please refer to her note SKIN: no rashes and no bruising UPPER EXTREMITIES: upper extremities are grossly normal. LOWER EXTREMITIES: No pitting edema. NEURO EXAM: Normal sensorium, cranial nerves II-XII grossly intact, normal speech, no gross weakness of arms, no gross weakness of legs. Medical Decision & Procedures ER Provider Diagnostic Interpretation: Radiology results as stated below per my review and the radiologist's interpretation: ABD/PELVIS NO IV OR ORAL CONT CT DOSE: 1304.07 mGy.cm HISTORY: Abdominal and pelvic pain r flank pain TECHNIQUE: Multiaxial CT images of the abdomen and pelvis were performed without contrast. A dose lowering technique was utilized adhering to the principles of ALARA. COMPARISON STUDY: 04/09/2017 FINDINGS: Lung bases are clear. Liver spleen and pancreas are unremarkable. Bowel pattern is considered nonobstructive throughout. The appendix is normal. The left kidney is negative for calcification or hydronephrosis. Slight fullness right renal collecting system and right ureter. Bladder is midline. No obvious calcification within the urinary tracts. This may indicate a recently passed calculus versus faint 1 mm calculus at the right ureteral vesicle junction. IMPRESSION: 1. Slight fullness right urinary tract and right renal pelvis. 2. A well-defined obstructing calculus is not seen, with this potentially indicative of a recently passed calculus versus poorly defined 1 mm calculus at the right ureterovesical junction. The above report was generated using voice recognition software. It may contain grammatical, syntax or spelling errors. Electronically signed by: Ghulam Chu M.D. 11/11/2017 9:32 PM Dictated Date/Time: 11/11/2017 9:28 PM Laboratory Results 11/11/17 19:45 Red Blood Count 4.69, Mean Corpuscular Volume 87.6, Mean Corpuscular Hemoglobin 29.9, Mean Corpuscular Hemoglobin Concent 34.1, Mean Platelet Volume 11.6, Neutrophils (%) (Auto) 62.1, Lymphocytes (%) (Auto) 28.3, Monocytes (%) (Auto) 8.0, Eosinophils (%) (Auto) 1.0, Basophils (%) (Auto) 0.4, Neutrophils # (Auto) 9.03, Lymphocytes # (Auto) 4.11, Monocytes # (Auto) 1.16, Eosinophils # (Auto) 0.14, Basophils # (Auto) 0.06 11/11/17 19:45 Test 11/11/17 19:45 11/11/17 20:00 11/11/17 20:20 White Blood Count 14.53 K/uL (4.8-10.8) Red Blood Count 4.69 M/uL (4.2-5.4) Hemoglobin 14.0 g/dL (12.0-16.0) Hematocrit 41.1 % (37-47) Mean Corpuscular Volume 87.6 fL (80-100) Mean Corpuscular Hemoglobin 29.9 pg (25-34) Mean Corpuscular Hemoglobin Concent 34.1 g/dl (32-36) Platelet Count 276 K/uL (130-400) Mean Platelet Volume 11.6 fL (7.4-10.4) Neutrophils (%) (Auto) 62.1 % Lymphocytes (%) (Auto) 28.3 % Monocytes (%) (Auto) 8.0 % Eosinophils (%) (Auto) 1.0 % Basophils (%) (Auto) 0.4 % Neutrophils # (Auto) 9.03 K/uL (1.4-6.5) Lymphocytes # (Auto) 4.11 K/uL (1.2-3.4) Monocytes # (Auto) 1.16 K/uL (0.11-0.59) Eosinophils # (Auto) 0.14 K/uL (0-0.5) Basophils # (Auto) 0.06 K/uL (0-0.2) RDW Standard Deviation 43.4 fL (36.4-46.3) RDW Coefficient of Variation 13.7 % (11.5-14.5) Immature Granulocyte % (Auto) 0.2 % Immature Granulocyte # (Auto) 0.03 K/uL (0.00-0.02) Anion Gap 7.0 mmol/L (3-11) Est Creatinine Clear Calc Drug Dose 138.5 ml/min Estimated GFR () 121.3 Estimated GFR (Non- 104.7 BUN/Creatinine Ratio 12.9 (10-20) Calcium Level 9.2 mg/dl (8.5-10.1) Total Bilirubin 0.4 mg/dl (0.2-1) Direct Bilirubin < 0.1 mg/dl (0-0.2) Aspartate Amino Transf (AST/SGOT) 11 U/L (15-37) Alanine Aminotransferase (ALT/SGPT) 27 U/L (12-78) Alkaline Phosphatase 121 U/L (45-117) Total Protein 8.2 gm/dl (6.4-8.2) Albumin 4.0 gm/dl (3.4-5.0) Lipase 100 U/L (73-393) Urine Color YELLOW Urine Appearance CLOUDY (CLEAR) Urine pH 7.0 (4.5-7.5) Urine Specific Rosalie 1.022 (1.000-1.030) Urine Protein NEG (NEG) Urine Glucose (UA) NEG (NEG) Urine Ketones NEG (NEG) Urine Occult Blood 1+ (NEG) Urine Nitrite NEG (NEG) Urine Bilirubin NEG (NEG) Urine Urobilinogen NEG (NEG) Urine Leukocyte Esterase NEG (NEG) Urine WBC (Auto) 1-5 /hpf (0-5) Urine RBC (Auto) 10-30 /hpf (0-4) Urine Hyaline Casts (Auto) 1-5 /lpf (0-5) Urine Epithelial Cells (Auto) 10-20 /lpf (0-5) Urine Bacteria (Auto) NEG (NEG) Urine Test NEG (NEG) Date/Time Source Procedure Growth Status 11/11/17 20:20 Vaginal Swab Trichomonas Preparation - Final Complete Laboratory results per my review. Medications Administered Medications (Trade) Dose Ordered Sig/Sandra Route Start Time Stop Time Status Last Admin Dose Admin Ceftriaxone Sodium (Rocephin Im) 250 mg NOW STAT IM 11/11/17 20:59 11/11/17 21:00 DC 11/11/17 21:21 250 MG Azithromycin (Zithromax Tab) 1,000 mg NOW STAT PO 11/11/17 20:59 11/11/17 21:00 DC 11/11/17 21:21 1,000 MG Trimethoprim/ Sulfamethoxazole (Septra Ds 800/ 160MG Tab) 1 tab NOW STAT PO 11/11/17 20:59 11/11/17 21:00 DC 11/11/17 21:20 1 TAB ED Course ED COURSE: Vital signs were reviewed and showed normal The patients medical record was reviewed The above diagnostic studies were performed and reviewed. ED treatments and interventions as stated above. 1935: The patient was evaluated in room B10. A complete history and physical examination was performed. 2058: Ordered Trimethoprim/Sulfamethoxazole 1 tab PO, Zithromax 1,000 mg PO, and Rocephin 250 mg IM 2005: I reassessed the patient at this time. She prefers to have a female provider perform her pelvic exam. 2008: I spoke with Johnna Monge PA-C. We discussed the patients case. She will perform the patient's pelvic exam. 2056: I reassessed the patient at this time. She is resting comfortably. 2202: Upon reevaluation, the patient is feeling better and resting comfortably. I discussed my findings with the patient and she understands and agrees with the treatment plan. Based on the patients age, coexisting illnesses, exam and lab findings the decision to treat as an outpatient was made. The patient remained stable while under my care. The patient appeared well at the time of discharge. 2214: Ordered Oxycodone HCl 1 homepack PO Medical Decision Differential diagnoses includes but is not limited to appendicitis, diverticulitis, small bowel obstruction, malignancy, hernia, urinary tract infection, torsion, and ectopic (if female), perforation, trauma, infectious. Patient is a 20-year-old female who presents to ER for dysuria, urgency and frequency with urination. This started 2 days ago. Just complains of right lower back pain. This does appear to be slightly muscle skeletal exam. Lab work is obtained and shows mild leukocytosis of 14,000. BMP all LFTs, bilirubin lipase is unremarkable. UA showed no signs of infection. Did show blood. was negative. She complained of a new vaginal discharge. Pelvic was performed per her request by my PA. This was benign. Cultures were sent. She was covered initially with Rocephin and azithromycin. With the negative urine but the hematuria we elected to perform a CT stone study. At this time there is a questionable 1 mm stone at the distal UVJ. Pain was controlled while in the ER. PDMP and was negative. Patient was given a to go OxyIR. She is discharged with a short course of Bactrim as well she should be start of a UTI which I favor is very unlikely. Do favor the majority of symptoms are caused by possible stone. Discussed with Pt concerning signs and symptoms to watch out for. Pt was instructed to follow up with their PCP and discussed with the patient their option to return to the ED at anytime for persistent or worsening symptoms. The appropriate anticipatory guidance and out- patient management, including indications for return to the emergency department , were explained at length to the patient and understood. [place] Drug Monitoring Program Search Results: no issues identified Medication Reconcilliation Current Medication List: was personally reviewed by me Blood Pressure Screening Patient's blood pressure: Normal blood pressure Consults Time Called: 2005 Consulting Physician: Johnna Monge PA-C Returned Call: 2008 I spoke with Johnna Mnoge PA-C. We discussed the patients case. She will perform the patient's pelvic exam. 2033: I spoke with Johnna Monge PA-C. We discussed the patients case. She states patient's pelvic exam was normal. Impression Primary Impression: Unspecified renal colic Additional Impression: Symptoms involving urinary system Scribe Attestation The scribe's documentation has been prepared under my direction and personally reviewed by me in its entirety. I confirm that the note above accurately reflects all work, treatment, procedures, and medical decision making performed by me. Departure Information Dispostion Home / Self-Care Prescriptions Sulfa/Trimethoprim (Bactrim Ds 800MG/160MG) Tab 1 TAB PO BID for 5 Days, #10 TAB Prov: Tyron Martínez, DO 11/11/17 Referrals Harry Ellison M.D. (PCP) Forms HOME CARE DOCUMENTATION FORM, IMPORTANT VISIT INFORMATION Patient Instructions ED Stone Renal W Colic, My [facility] Additional Instructions Please follow up with your primary care doctor with in the next 24 hours. Any worsening of your symptoms, please return to the ED immediately. This includes any fevers greater than 100.4, worsening pain, chest pain, shortness breath, persistent nausea, vomiting, unable to eat or drink, or any other concerning signs or symptoms from your standpoint. You were also given a prescription for a narcotic. While taking this medication you should also not drive, operate machinery and or work for 12 hours following taking this medication. Please take the antibiotics as prescribed. Problem Qualifiers
[2017-11-11] MEDS ORDERED: SULFAMETHOXAZOLE/TRIMETHOPRIM DS 800/160MG TAB PO STA (20:59)
[2017-11-11] MEDS ORDERED: CEFTRIAXONE SOD 350MG/ML 1 GM VIAL IM STA (20:59)
[2017-11-11] MEDS ORDERED: AZITHROMYCIN 250 MG TAB PO STA (20:59)
--- NOTE | 2017-11-11 21:34 | DIAGNOSTIC IMAGING REPORT ---
ABD/PELVIS NO IV OR ORAL CONT CT DOSE: 1304.07 mGy.cm HISTORY: Abdominal and pelvic pain r flank pain TECHNIQUE: Multiaxial CT images of the abdomen and pelvis were performed without contrast. A dose lowering technique was utilized adhering to the principles of ALARA. COMPARISON STUDY: 04/09/2017 FINDINGS: Lung bases are clear. Liver spleen and pancreas are unremarkable. Bowel pattern is considered nonobstructive throughout. The appendix is normal. The left kidney is negative for calcification or hydronephrosis. Slight fullness right renal collecting system and right ureter. Bladder is midline. No obvious calcification within the urinary tracts. This may indicate a recently passed calculus versus faint 1 mm calculus at the right ureteral vesicle junction. IMPRESSION: 1. Slight fullness right urinary tract and right renal pelvis. 2. A well-defined obstructing calculus is not seen, with this potentially indicative of a recently passed calculus versus poorly defined 1 mm calculus at the right ureterovesical junction. The above report was generated using voice recognition software. It may contain grammatical, syntax or spelling errors. Electronically signed by: Ghulam Chu M.D. 11/11/2017 9:32 PM Dictated Date/Time: 11/11/2017 9:28 PM
[2017-11-11] MEDS ORDERED: SULF800T23 PO (22:07)
[2017-11-11] MEDS ORDERED: OXYCODONE IR HOME PACK PO ONE (22:15)
[2017-11-11 22:16] VITALS: BP 121/71; PULSE 77; O2SAT 98
[2018-05-25] MEDS ORDERED: NITR-5 PO (19:06)
== END 2017-11-11 22:17 | disposition home or self-care (01) ==
LOC: C.EDB 19:25
DX: N23 Unspecified renal colic (principal); R10.30 Lower abdominal pain, unspecified; R30.0 Dysuria; M54.5 Low back pain

== ENCOUNTER → 2018-06-05 | Outpatient (CLI) | payer OTHER | END | disposition home or self-care (01) | LOC: C.LAB1850 07:13 | PROVIDERS: ATTEND Obstetrics & Gynecology | DX: O26.891 Other specified pregnancy related conditions, first trimester (principal); Z3A.00 Weeks of gestation of pregnancy not specified; R10.9 Unspecified abdominal pain ==

== ENCOUNTER → 2018-06-05 | Outpatient (CLI) | payer OTHER | END | disposition home or self-care (01) | LOC: C.PAPS 13:10 | PROVIDERS: ATTEND Obstetrics & Gynecology | DX: Z34.81 Encounter for supervision of other normal pregnancy, first trimester (principal) ==

== ENCOUNTER → 2018-06-23 | Outpatient (CLI) | payer OTHER ==
[2018-06-23 15:38] LABS: BASO % 0.2 %; BASO ABS # 0.03 K/uL (0-0.2); EOS % 0.9 %; EOS ABS # 0.11 K/uL (0-0.5); HEMATOCRIT 39.6 % (37-47); HEMOGLOBIN 13.5 g/dL (12.0-16.0); IG# 0.02 K/uL (0.00-0.02); LYMPH % 19.4 %; LYMPH ABS # 2.48 K/uL (1.2-3.4); MEAN CELL VOLUME 87.4 fL (80-100); MEAN CORPUSCULAR HEMOGLOBIN 29.8 pg (25-34); MEAN CORPUSCULAR HGB CONC 34.1 g/dl (32-36); MEAN PLATELET VOLUME 12.4 fL (7.4-10.4); MONO % 7.6 %; MONO ABS # 0.97 K/uL (0.11-0.59); NEUT % 71.7 %; NEUT ABS # 9.17 K/uL (1.4-6.5); PLATELET COUNT 275 K/uL (130-400); RED CELL DISTRIBUTION WIDTH CV 13.9 % (11.5-14.5); RED CELL DISTRIBUTION WIDTH SD 44.3 fL (36.4-46.3); WHITE BLOOD COUNT 12.78 K/uL (4.8-10.8)
== END | disposition home or self-care (01) ==
LOC: C.LAB1850 14:27
PROVIDERS: ATTEND Obstetrics & Gynecology
DX: Z34.81 Encounter for supervision of other normal pregnancy, first trimester (principal)

== ENCOUNTER 2019-01-29 00:13 | Inpatient (IN) ==
[2019-01-29] MEDS ORDERED: MoRPHine SULFATE 10 MG/ML CARP/VIAL IM STA (00:37)
[2019-01-29] MEDS ORDERED: PROMETHAZINE HCL 25 MG in SODIUM CHLORIDE 0.9% 50 ML IM PRN (00:37)
[2019-01-29] MEDS ORDERED: PROMETHAZINE HCL INJ 25 MG/ML 1 ML VIAL IM PRN (00:49)
[2019-01-29] MEDS ORDERED: PROMETHAZINE HCL 25 MG in SODIUM CHLORIDE 0.9% 50 ML IM STA (00:49)
--- NOTE | 2019-01-29 01:04 | History & Physical Report ---
Date of Service January 29, 2019 Assessment & Plan (1) 39 weeks gestation of : Cervix remains unchanged. However, due to patient's complaint of severe pain, will attempt therapeutic rest. Will also send urinalysis, as a differential includes kidney stone to determine whether this is contributing to her pain. Will plan to recheck cervix after rest. History of Present Illness Chief Complaint: contractions Primary Care Provider: Jack Dmitri 23yo @ 39 12/21 returns to L&D with complaint of contractions every 6 minutes. She states she has severe pain in her low back that wraps around her right side to her front. She describes this pain as "it comes and goes but is also constant." She has had a kidney stone before, but this does not feel like it. + movement. No vaginal bleeding. No leaking of fluid. Allergies Allergy/AdvReac Type Severity Reaction Status Date / Time latex Allergy Intermediate Rash Unverified 01/28/19 18:04 thimerosal Allergy Unknown Unknown Verified 12/06/18 09:39 Home Medications Home Medications Medication Instructions Recorded Confirmed Type vit no.[id number] 1 tab PO DAILY 01/28/19 01/29/19 History [ Vitamin] Patient History Medical History Asthma History of tooth extraction Bladder disorder pt. states she had bladder surgery as a child and bladder remains small Surgical History History of cystoscopy Family History Grandmother (Paternal) Family history of diabetes mellitus Father Hypertension Mother Hypertension Uncle Hypertension Aunt Stroke Social History Preferred Language: Erit[place]an Communication Ability: Effective Visual Impairment: No Limitations Hearing Ability: Normal marital status: Single Feels Safe at Home: Yes Safety Concerns: Feels Safe At This Time Smoking Status: Former smoker Hx Alcohol Use: No Hx Substance Use: No Physical Exam Vital Signs (Past 24 Hours): Last Vital Signs Temp 36.6 C 01/29/19 00:43 Pulse 90 01/29/19 00:32 Resp 20 01/29/19 00:43 BP 131/75 01/29/19 00:32 Physical Exam: Gen: very uncomfortable. AAOx3 CV: RRR L: CTA Abd: soft, gravid Ext: no edema SVE: 3-4/50/-2. Cephalic. Similar to previous exam. FHT: difficult to trace due to patient inability to stay in one position. FHTs in 140-150s. [place]: Q 6-7 min
--- NOTE | 2019-01-29 01:26 | Obstetrical Progress Note ---
Date of Service January 29, 2019 Subjective Limited bedside ultrasound: cephalic, + movement, +cardiac activity, + breathing motion, +tone, adequate appearing amniotic fluid. Placenta anterior/rt lateral. Physical Exam Vital Signs (Past 24 Hours): Last Vital Signs Temp 36.6 C 01/29/19 00:43 Pulse 90 01/29/19 00:32 Resp 20 01/29/19 00:43 BP 131/75 01/29/19 00:32
[2019-01-29 01:30] LABS: Appearance Urine Clear (Clear); Bilirubin Urine Negative (Negative); Blood Urine Negative (Negative); Color Urine Yellow; Glucose Urine UA Negative (Negative); Leukocyte Esterase Urine Negative (Negative); Nitrite Urine Negative (Negative); Protein Urine Negative (Negative); Specific Gravity Urine 1.021 (1.000-1.030); Urobilinogen Urine Negative (Negative); pH Urine 5.5 (4.5-7.5)
[2019-01-29 01:38] LABS: Ketones Urine 3+ (Negative)
[2019-01-29] MEDS ORDERED: PENICILLIN G POTASSIUM 3 MU in DEXTROSE 5% 100 ML IV PRN (01:43)
[2019-01-29] MEDS ORDERED: LACTATED RINGER'S 1,000 ML IV PRN ×2 (01:43→03:00)
[2019-01-29] MEDS ORDERED: OXYTOCIN 30 UNITS/500 ML BAG IV PRN (01:43)
--- NOTE | 2019-01-29 01:43 | Obstetrical Progress Note ---
Date of Service January 29, 2019 Subjective Patient continues to be very uncomfortable. Cervix 4-5/50/-2. Difficult to trace baby due to patient inability to stay in one position, due to her discomfort. FHT in 150s. Will admit to L&D, obtain labs, epidural. Physical Exam Vital Signs (Past 24 Hours): Last Vital Signs Temp 36.6 C 01/29/19 00:43 Pulse 90 01/29/19 00:32 Resp 20 01/29/19 00:43 BP 131/75 01/29/19 00:32
[2019-01-29] MEDS ORDERED: LACTATED RINGER'S 1,000 ML IV SCH ×3 (01:45→18:00)
[2019-01-29] MEDS ORDERED: PENICILLIN G POTASSIUM 6 MU in DEXTROSE 5% 250 ML IV ONE (02:00)
[2019-01-29 02:01] LABS: Hemoglobin 11.7 g/dL (12.0-16.0); Mean Corpuscular Volume 85.2 fL (80-100); Mean Platelet Volume 12.2 fL (7.4-10.4); Platelet Count 294 K/uL (130-400); RDW Coefficient of Variation 13.3 % (11.5-14.5); RDW Standard Deviation 41.1 fL (36.4-46.3); Red Blood Count 4.11 M/uL (4.2-5.4); White Blood Count 18.11 K/uL (4.8-10.8)
[2019-01-29] MEDS ORDERED: BUPIVACAINE 0.25% 30 ML VIAL ONE (02:08)
[2019-01-29] MEDS ORDERED: ePHEDrine sulfate 50 MG/ML AMP ONE (02:08)
[2019-01-29] MEDS ORDERED: fentaNYL citrate 100 MCG/2 ML VIAL ONE ×3 (02:09→05:29)
[2019-01-29] MEDS ORDERED: fentaNYL 2MCG/ML ROPIV 1.25MG/ML 100 ML BAG EPI ONE (02:09)
[2019-01-29 02:11] LABS: Mean Corpuscular Hgb Conc 33.4 g/dL (32-36)
--- NOTE | 2019-01-29 02:18 | Anesthesiology Consultation ---
Date of Service January 29, 2019 Assessment & Plan (1) Encounter for pre-operative examination: Chart Review Chart Review: Patient NOT seen in Pre Admission Testing and Acceptable Risk for Labor Epidural Consults Requested none ASA ASA3 Proposed Anesthesia Anesthesia Type: Labor Epidural Risk / Benefits Reviewed With: PT / POA / Parent / Guardian, Accepts Plan and Informed Consent Obtained NPO Date Last Intake of Fluids: 01/29/19 Time Last Intake of Fluids: 02:45 Date Last Intake of Solids: 01/28/19 Time Last Intake of Solids: 14:00 History Height/Weight Height: 5 ft 5 in Weight: 111.13 kg Allergies Allergy/AdvReac Type Severity Reaction Status Date / Time latex Allergy Intermediate Rash Unverified 01/28/19 18:04 thimerosal Allergy Unknown Unknown Verified 12/06/18 09:39 Medications Home Medications Medication Instructions Recorded Confirmed Last Taken vit no.[id number] 1 tab PO DAILY 01/28/19 01/29/19 01/29/19 [ Vitamin] Active Medications Generic Name Dose Route Start Last Admin Trade Name Freq PRN Reason Stop Dose Admin Lactated Ringer's 1,000 mls @ 999 mls/hr 01/29/19 01:43 01/29/19 02:00 Lr IV 02/28/19 01:42 999 mls/hr .Q1H1M PRN Administration (Pre-Anesthesia) Penicillin G Potassium 6 mu/ 262 mls @ 262 mls/hr 01/29/19 02:00 01/29/19 02:26 Dextrose IV 01/29/19 02:59 262 mls/hr ONE ONE Administration Past Medical History Medical History Asthma History of tooth extraction Bladder disorder pt. states she had bladder surgery as a child and bladder remains small Past Family History Family History Grandmother (Paternal) Family history of diabetes mellitus Father Hypertension Mother Hypertension Uncle Hypertension Aunt Stroke Past Surgical History Surgical History History of cystoscopy Past Anesthesia History No Hx of Anesthesia Complications History of PONV No Motion Sickness Screening History of Motion Sickness: No Social History Smoking Status: Former smoker Hx Alcohol Use: No Hx Substance Use: No substance use type: does not use Review of Systems Patient denies history of abnormal bleeding or bleeding disorder. Patient denies active use of anticoagulants other than low dose aspirin. Patient denies numbness, tingling or weakness in her lower extremities. Physical Exam Vital Signs Last Vital Signs Temp 36.6 C 01/29/19 00:43 Pulse 90 01/29/19 00:32 Resp 20 01/29/19 00:43 BP 131/75 01/29/19 00:32 Constitutional + obese (Gravid uterus) ENMT Mouth: + small oral opening; no TMJ abnormality Thyromental Distance: < 3.5 Finger Breadths Mallampati Class: III Neck normal visual inspection; neck extension not limited Respiratory normal respiratory effort Auscultation: lungs clear to auscultation bilaterally Cardiovascular Rate/Rhythm: regular rate and regular rhythm Heart Sounds: no murmur Psychiatric A+Ox3, euthymic affect Orientation: alert and oriented x 3 Testing Laboratory Results 01/29/19 01:52 Urine Color Yellow 01/29/19 01:15 Urine Appearance Clear (Clear) 01/29/19 01:15 Urine pH 5.5 (4.5-7.5) 01/29/19 01:15 Ur Specific Excel 1.021 (1.000-1.030) 01/29/19 01:15 Urine Protein Negative (Negative) 01/29/19 01:15 Urine Glucose (UA) Negative (Negative) 01/29/19 01:15 Urine Ketones 3+ (Negative) H 01/29/19 01:15 Urine Nitrite Negative (Negative) 01/29/19 01:15 Ur Leukocyte Esterase Negative (Negative) 01/29/19 01:15
[2019-01-29] MEDS ORDERED: NALBUPHINE HCL INJ 10 MG/ML AMP IV PRN ×2 (03:00→06:52)
[2019-01-29] MEDS ORDERED: DiphenhydrAMINE HCL 50 MG/ML VIAL IV PRN (03:00)
[2019-01-29] MEDS ORDERED: NALOXONE HCL 1 MG in SODIUM CHLORIDE 0.9% 1000ML 1,000 ML IV PRN ×2 (03:00→06:52)
[2019-01-29] MEDS ORDERED: NALOXONE HCL 0.4 MG/1 ML VIAL/CARP IV PRN ×2 (03:00→06:52)
[2019-01-29] MEDS ORDERED: ePHEDrine sulfate 50 MG/ML AMP IV PRN ×2 (03:00→06:52)
[2019-01-29] MEDS ORDERED: fentaNYL 2MCG/ML ROPIV 1.25MG/ML 100 ML BAG EPI PRN (03:00)
[2019-01-29] MEDS ORDERED: ONDANSETRON INJ 2 MG/ML 2 ML VIAL IV PRN ×2 (03:00→06:52)
--- NOTE | 2019-01-29 03:03 | Obstetrical Progress Note ---
Date of Service January 29, 2019 Subjective Patient has rec'd epidural, is now much more comfortable. Had hoped that after epidural, would be able to trace FHT better. This was still very difficult with external monitor. I discussed this with patient - and recommended to her placement of a scalp electrode to determine tracing. Scalp lead placed, 2 large deep FHT decelerations. Clear amniotic fluid. Cervix still 6cm dilated, baby high in pelvis. Physical Exam Vital Signs (Past 24 Hours): Last Vital Signs Temp 36.8 C 01/29/19 02:45 Pulse 98 H 01/29/19 03:01 Resp 18 01/29/19 02:45 BP 130/67 01/29/19 03:01 Pulse Ox 99 01/29/19 02:59
--- NOTE | 2019-01-29 04:54 | Obstetrical Progress Note ---
Date of Service January 29, 2019 Subjective Patient had another deep deceleration in FHT - lasting 1.5 minutes, to 40s. Cervix exam unchanged. I discussed with patient that I recommend delivery by for intolerance to labor (nonreassuring heart tracing). She is agreeable to . Informed consent was previously obtained, all questions answered. Will proceed to OR. Physical Exam Vital Signs (Past 24 Hours): Last Vital Signs Temp 36.8 C 01/29/19 04:00 Pulse 109 H 01/29/19 04:50 Resp 18 01/29/19 04:30 BP 158/84 H 01/29/19 04:50 Pulse Ox 100 01/29/19 04:49
[2019-01-29] MEDS ORDERED: MoRPHine SULFATE PF 1 MG/ML 10 ML AMP/VIAL ONE (05:31)
[2019-01-29] MEDS ORDERED: MIDAZOLAM HCL 1 MG/ML 2ML VIAL ONE (05:32)
[2019-01-29] MEDS ORDERED: PHENYLEPHRINE 100MCG/ML 5ML SYR ONE (05:48)
[2019-01-29] MEDS ORDERED: ONDANSETRON INJ 2 MG/ML 2 ML VIAL ONE (05:48)
[2019-01-29] MEDS ORDERED: LIDOCAINE/EPINEPHRINE 2% 1:200,000 20 ML SDV ONE (05:48)
[2019-01-29] MEDS ORDERED: KETOROLAC 30 MG/ML VIAL ONE (05:48)
[2019-01-29] MEDS ORDERED: OXYTOCIN 10 UNITS/ML VIAL ONE (05:50)
[2019-01-29] MEDS ORDERED: CITRIC ACID/SODIUM CITRATE 15 ML UDC PO SCH (06:00)
[2019-01-29] MEDS ORDERED: CEFAZOLIN 3000MG 65 ML IV SCH (06:00)
[2019-01-29] MEDS ORDERED: PROMETHAZINE HCL INJ 25 MG/ML 1 ML VIAL ONE (06:25)
--- NOTE | 2019-01-29 06:25 | Operative Report ---
Post Operative Report Pre & Post Diagnosis Operation Date: 01/29/19 05:30 Pre-Op Diagnosis: Non-reasuring heart rate tracing Post-Op Diagnosis: Non-reasuring heart rate tracing Procedure Operation Date: 01/29/19 05:30 Actual Procedures p Primary low transverse Section in LD, removal of right paratubal cyst - Kristan Grider DO Surgeon Kristan Grider DO Comptroller S Forr RN Estimated Blood Loss 600 Findings Consistent with Post-Op Diagnosis Viable female , Apgars 8/9 . Weight 7lb 5.8oz. Right paratubal cyst filled with blood, approx 3cm. Specimens Placenta, cord gases, cord blood, right paratubal cyst wall Drains bojorquez, clear yellow Complications none Disposition Accompanied Patient To Recovery: Yes Disposition: L&D Indications 23-year-old at 39 weeks 2 days who presented in spontaneous labor. There was difficulty tracing heart tones due to both movement and maternal discomfort with contractions and labor, however heart tones prior to epidural were 140s-150s. Epidural was given, it was still difficult to trace heart tracing, due to movement. Decision was made to place a scalp electrode, with rupture of membranes occurring upon placement of FSE. heart tracing was then found to be in the 150s-160s with moderate variability and accelerations. Patient developed large deep variable decelerations, with the third of these lasting approximately 1.5 minutes down to the 40s. Cervix was still 6 cm, unchanged after 2 hours. At this time, decision was made to proceed to section, due to nonreassuring heart tones. Description of Procedure The patient was taken to the operating room, where her epidural was redosed. Ruth Ann mars received 3 g of Ancef preoperatively. She had previously signed informed consent and all questions were answered. Timeout was confirmed with all personnel in the room. Patient was prepared and draped in the usual sterile fashion in the supine position with a wedge. A Pfannenstiel skin incision was made with a scalpel and carried through to the underlying layer of the fascia. Fascia was nicked at midline, and this incision was extended bilaterally. The superior aspect of the fascial incision was grasped with [place] clamps x2, and the underlying rectus abdominis muscles were dissected. In a similar fashion, the inferior aspect of the incision was dissected. The rectus abdominis muscles were midline, and the peritoneum was entered bluntly digitally. This incision was extended bilaterally. Bladder blade was placed, the bladder flap was taken down using Metzenbaum scissors. A scalpel was used to make a low transverse uterine incision. This incision was extended bilaterally. The railroad signal operator's hand was placed into the pelvis, and the head was brought to the incision. The infant was delivered from the cephalic presentation, direct occiput posterior. The remainder of the body was delivered easily. The cord was doubly clamped and cut, spontaneous cry was heard, the was handed off to the waiting core carrier. A cord segment was obtained for cord gases. Cord blood was obtained. The placenta was delivered spontaneously intact with three-vessel cord. The uterus was exteriorized, the uterus was clear was off of all clots and debris. The uterus was firm. Pitocin was given. The hysterotomy incision was reapproximated using 0 Vicryl in a running locked stitch. A second layer of the same suture was used to imbricate the incision. Posterior uterus was evaluated. Bilateral fallopian tubes and ovaries were evaluated. The right fallopian tube had a 3 cm paratubal cyst, attached to the fimbrial area of the mesosalpinx. It appeared to be filled with blood clot. An attempt was made to remove the cyst wall intact, however this burst on the field. Bovie cautery was used to resect the cyst wall, as well as obtain hemostasis. This was passed off to be sent to the pathology lab. The uterus was returned to the abdomen. The hysterotomy incision was was hemostatic. Gutters were cleared of all clots and debris. The fascia was reapproximated using 0 Vicryl in a running stitch. The subcutaneous tissue was irrigated. A layer of 2-0 gut suture was used to reapproximate the subcutaneous space. The skin was reapproximated using 4-0 Vicryl in a running subcuticular stitch. Steri-Strips and bandage were applied. The patient tolerated the procedure well. Sponge, instrument, needle counts were correct x2 at the conclusion of the case. Mother was taken to her room in stable and good condition. The baby was taken to the nursery in stable and good condition. I attest to the content of the Intraoperative Record and any orders documented therein. Any exceptions are noted below.
[2019-01-29 06:41] LABS: Base Excess Cord Venous Blood -1.9 mEq/L (-7.7-1.9); Cord Venous Blood HCO3 24 mmol/L (18.4-26.8); Cord Venous Blood PCO2 46 mmHg (30.4-57.2); Cord Venous Blood PO2 31 mmHg (14.1-43.3); Cord Venous Blood pH 7.34 (7.20-7.44)
[2019-01-29 06:45] LABS: Base Excess Cord Arterial Bld -1.5 mEq/L (-9-1.8); CO2 Cord Arterial Blood 73 mmHg (39.1-73.5); HCO3 Cord Arterial Blood 28 mmol/L (19.7-28.5); pH Cord Arterial Blood 7.21 (7.1-7.38)
[2019-01-29 06:50] LABS: PO2 Cord Arterial Blood < 10.0 % (4.1-31.7)
[2019-01-29] MEDS ORDERED: KETOROLAC 30 MG/ML VIAL IV PRN (06:52)
[2019-01-29] MEDS ORDERED: LACTATED RINGER'S 500 ML IV PRN (06:52)
[2019-01-29] MEDS ORDERED: MoRPHine SULFATE PF 1 MG/ML 10 ML AMP/VIAL EPI ONE (06:52)
[2019-01-29] MEDS ORDERED: NALOXONE HCL 0.08 MG in SYRINGE 1.8 ML IV PRN (06:52)
[2019-01-29] MEDS ORDERED: MoRPHine SULFATE 2 MG/ML CARP IV PRN (06:52)
--- NOTE | 2019-01-29 06:52 | Anesthesia Procedure Note ---
Date of Service January 29, 2019 Anesthesia Post Epidural Note Vital Signs Vital Signs: Temp Pulse Resp BP Pulse Ox 36.8 C 97 H 18 108/63 97 01/29/19 04:00 01/29/19 06:49 01/29/19 04:30 01/29/19 06:45 01/29/19 06:49 Pain Intensity Right Back: Pain Intensity: 4 Notes Mental Status: alert / awake / arousable and participated in evaluation Nausea / Vomiting: adequately controlled Pain: adequately controlled Airway Patency, RR, SpO2: stable & adequate BP & HR: stable & adequate Hydration State: stable & adequate Neuraxial Anesthesia: was administered and sensory block is resolving Anesthetic Complications: no major complications apparent and Pt Satisfied with anesthetic care Epidural: Removed without complications and With tip intact
--- NOTE | 2019-01-29 06:56 | Anesthesiology Progress Note ---
Date of Service January 29, 2019 Anesthesia Post Procedure Vital Signs Vital Signs: Temp Pulse Resp BP Pulse Ox 01/29/19 06:54 81 98 01/29/19 06:49 97 H 97 01/29/19 06:45 91 H 108/63 01/29/19 06:44 97 H 95 01/29/19 06:39 92 H 94 01/29/19 06:38 94 H 93 01/29/19 06:35 98 H 99/58 L 01/29/19 06:34 102 H 96 01/29/19 05:02 120 H 117/77 01/29/19 04:54 112 H 100 01/29/19 04:50 109 H 158/84 H 01/29/19 04:49 112 H 100 01/29/19 04:44 118 H 100 01/29/19 04:39 101 H 99 01/29/19 04:35 96 H 153/79 H 01/29/19 04:34 93 H 99 01/29/19 04:30 18 01/29/19 04:29 98 H 98 01/29/19 04:24 89 100 01/29/19 04:20 100 H 151/85 H 01/29/19 04:19 90 100 01/29/19 04:14 84 98 01/29/19 04:09 123 H 99 01/29/19 04:05 100 H 141/84 H 01/29/19 04:04 111 H 100 01/29/19 04:00 36.8 C 18 01/29/19 03:59 92 H 100 01/29/19 03:54 100 H 100 01/29/19 03:52 95 H 166/80 H 01/29/19 03:49 104 H 100 19 03:44 86 100 01/29/19 03:39 86 99 19 03:37 83 132/62 01/29/19 03:35 99 H 126/56 L 01/29/19 03:34 99 H 100 01/29/ 03:30 18 01/29/19 03:29 104 H 100 01/29/ 03:24 122 H 100 01/29/19 03:21 111 H 146/71 H 01/29/19 03:19 109 H 100 19 03:14 100 H 100 01/29/19 03:09 101 H 100 01/29/19 03:05 118/64 01/29/19 03:04 99 H 100 01/29/19 03:03 106 H 124/64 01/29/19 03:01 98 H 130/67 01/29/19 03:00 18 01/29/19 02:59 108 H 123/70 99 01/29/19 02:57 109 H 123/60 01/29/19 02:55 90 18 121/57 L 01/29/19 02:54 90 99 01/29/19 02:53 93 H 119/56 L 01/29/19 02:51 97 H 126/58 L 01/29/19 02:50 18 01/29/19 02:49 104 H 126/59 L 98 01/29/19 02:47 94 H 126/58 L 01/29/19 02:45 36.8 C 97 H 18 122/55 L 01/29/19 02:44 99 H 98 01/29/19 02:43 93 H 122/58 L 01/29/19 02:40 18 01/29/19 02:39 99 H 136/73 98 01/29/19 02:37 93 H 132/94 01/29/19 02:35 84 89 L 01/29/19 02:34 81 88 L 01/29/19 02:30 20 01/29/19 02:29 101 H 88 L 01/29/19 02:28 97 H 92 01/29/19 02:24 90 94 01/29/19 02:23 84 78 L 01/29/19 00:43 36.6 C 20 01/29/19 00:32 90 131/75 Pain Intensity Right Back: Pain Intensity: 4 Notes Mental Status: alert / awake / arousable and participated in evaluation Nausea / Vomiting: adequately controlled Pain: adequately controlled Airway Patency, RR, SpO2: stable & adequate BP & HR: stable & adequate Hydration State: stable & adequate Neuraxial Anesthesia: was administered and sensory block is resolving Anesthetic Complications: no major complications apparent
[2019-01-29] MEDS ORDERED: SODIUM CHLORIDE 0.9% 1000ML 1,000 ML IV SCH (07:00)
[2019-01-29] MEDS ORDERED: NO NARCOTICS OR SEDATIVES SCH (07:00)
[2019-01-29] MEDS ORDERED: OXYTOCIN 30 UNITS in LACTATED RINGER'S 1,000 ML IV SCH (08:00)
[2019-01-29] MEDS ORDERED: HYDROCORTISONE ACETATE 25 MG SUPP PR PRN (11:24)
[2019-01-29] MEDS ORDERED: DIPHTHERIA/TETANUS/PERTUSSIS 0.5 ML SYR/VIAL IM ONE (11:24)
[2019-01-29] MEDS ORDERED: BENZOCAINE 20% AER SPR 82.5 GM CAN EXT PRN (11:24)
[2019-01-29] MEDS ORDERED: SENNA 8.6 MG TAB PO PRN (11:24)
[2019-01-29] MEDS ORDERED: SUPERCREAM 0.870% 15 GM JAR EXT PRN (11:24)
[2019-01-29] MEDS ORDERED: MAGNESIUM HYDROXIDE SUSP 30 ML UDC PO PRN (11:24)
[2019-01-29] MEDS ORDERED: OXYTOCIN 30 UNITS in LACTATED RINGER'S 1,000 ML IV ONE (11:45)
[2019-01-29] MEDS: PRENATAL VITAMIN 1 TAB PO SCH (12:25)
[2019-01-29] MEDS: FERROUS SULFATE 325 MG TAB PO SCH (12:25)
[2019-01-29] MEDS: SIMETHICONE 80 MG CHEW PO SCH ×4 (12:25→20:09)
[2019-01-29] MEDS: DOCUSATE SODIUM 100 MG CAP PO SCH ×2 (12:25→20:09)
[2019-01-29] MEDS: DiphenhydrAMINE HCL 50 MG/ML VIAL IV PRN ×2 (14:22→20:09)
[2019-01-30] MEDS ORDERED: DC INTRASPINAL MORPHINE ONE (01:00)
[2019-01-30] MEDS ORDERED: ONDANSETRON INJ 2 MG/ML 2 ML VIAL IV PRN (01:00)
[2019-01-30] MEDS ORDERED: DiphenhydrAMINE HCL 50 MG/ML VIAL IV PRN (01:00)
[2019-01-30] MEDS ORDERED: KETOROLAC 30 MG/ML VIAL IV PRN (01:00)
[2019-01-30] MEDS ORDERED: PROMETHAZINE HCL 25 MG in SODIUM CHLORIDE 0.9% 50 ML IV PRN (01:00)
[2019-01-30] MEDS: OXYCODONE/ACETAMINOPHEN 5mg/325mg TAB PO PRN ×5 (01:36→23:28)
[2019-01-30 07:11] LABS: Basophils # (auto) 0.01 K/uL (0-0.2); Basophils % (auto) 0.1 %; Eosinophils # (auto) 0.02 K/uL (0-0.5); Eosinophils % (auto) 0.1 %; Hematocrit (blood only) 29.6 % (37-47); Hemoglobin 9.6 g/dL (12.0-16.0); Immature Granulocytes # (auto) 0.07 K/uL (0.00-0.02); Immature Granulocytes % (auto) 0.5 %; Lymphocytes # (auto) 1.93 K/uL (1.2-3.4); Lymphocytes % (auto) 12.6 %; Mean Corpuscular Hgb Conc 32.4 g/dL (32-36); Mean Corpuscular Volume 85.3 fL (80-100); Mean Platelet Volume 12.2 fL (7.4-10.4); Monocytes # (auto) 1.03 K/uL (0.11-0.59); Monocytes % (auto) 6.7 %; Neutrophils # (auto) 12.23 K/uL (1.4-6.5); Platelet Count 230 K/uL (130-400); RDW Coefficient of Variation 13.6 % (11.5-14.5); RDW Standard Deviation 41.7 fL (36.4-46.3); Red Blood Count 3.47 M/uL (4.2-5.4); White Blood Count 15.29 K/uL (4.8-10.8)
--- NOTE | 2019-01-30 07:22 | Obstetrical Progress Note ---
Date of Service January 30, 2019 Assessment & Plan (1) Post-operative state: POD 1 from LTCS. Doing well Subjective Ambulation: ambulating normally Voiding: no voiding problems Passing Gas:: Yes Diet Tolerance:: regular diet Lochia:: Moderate Physical Exam Vital Signs (Past 24 Hours) Last Vital Signs Temp 36.5 C 01/30/19 04:35 Pulse 71 01/30/19 04:35 Resp 16 01/30/19 04:35 BP 113/73 01/30/19 04:35 Pulse Ox 98 01/30/19 04:35 Gastrointestinal (Abdomen) Percussion/Palpation: abdomen soft; abdomen nontender Genitourinary Speculum/Bimanual Exam: uterus not boggy OB Exam Abdomen: + fundal height Fundus: + firm and + relation to umbilicus (Below); not tender and not boggy
[2019-01-30] MEDS: SIMETHICONE 80 MG CHEW PO SCH ×4 (08:17→20:20)
[2019-01-30] MEDS: PRENATAL VITAMIN 1 TAB PO SCH (08:17)
[2019-01-30] MEDS: DOCUSATE SODIUM 100 MG CAP PO SCH ×2 (08:17→20:20)
[2019-01-30] MEDS: FERROUS SULFATE 325 MG TAB PO SCH (08:18)
[2019-01-30] MEDS: IBUPROFEN 600 MG TAB PO PRN ×3 (13:23→23:27)
[2019-01-30] MEDS ORDERED: BISACODYL 5 MG TABEC PO SCH (20:00)
[2019-01-31] MEDS: OXYCODONE/ACETAMINOPHEN 5mg/325mg TAB PO PRN ×5 (03:26→21:06)
[2019-01-31] MEDS ORDERED: BISACODYL 10 MG SUPP PR PRN (06:34)
--- NOTE | 2019-01-31 06:34 | Obstetrical Progress Note ---
Date of Service January 31, 2019 Assessment & Plan (1) Status post section routine follow-up: -vital signs reviewed and WNL -last Hgb 9.6 --> ferrous sulfate 325 mg -Blood type: O-, GBS+, Rubella Immune -pt doing well clinically -encourage ambulation, monitor and control pain with motrin tylenol, cont regular diet, monitor lochia -cont encourage breast feeding Subjective 23 y/o POD2 found in bed this morning in NAD. Reports no acute overnight events. Pt states that she has no pain other than appropriate soreness. Tolerating PO intake without N/V. Able to ambulate without issue. She is bottle feeding without issue, tried breast but little production so switched. No issues with voiding. No other acute concerns or complaints. Review of Systems All systems reviewed & are unremarkable except as noted in HPI & below Physical Exam Vital Signs (Past 24 Hours) Last Vital Signs Temp 36.4 C L 01/30/19 23:20 Pulse 73 01/30/19 23:20 Resp 18 01/30/19 23:20 BP 137/83 01/30/19 23:20 Pulse Ox 99 01/30/19 15:30 Constitutional WD/WN, vitals as above Eyes PERRL, conjunctivae normal, anicteric sclerae ENMT external ear and nose normal, oropharynx normal Respiratory normal respiratory effort, lungs clear to auscultation Cardiovascular RRR, no murmur, no edema Gastrointestinal (Abdomen) mild abd tenderness incision C/D/I Skin no rashes, warm and dry Psychiatric A+Ox3, euthymic affect Lymphatic no LE swelling, no calf tenderness Results & Data Laboratory Results Laboratory Results - last 24 hr 01/30/19 01/30/19 06:44 06:44 WBC 15.29 H RBC 3.47 L Hgb 9.6 L Hct 29.6 L MCV 85.3 MCH 27.7 MCHC 32.4 RDW Std Deviation 41.7 RDW Coeff of Dottie 13.6 Plt Count 230 MPV 12.2 H Immature Gran % (Auto) 0.5 Neut % (Auto) 80.0 Lymph % (Auto) 12.6 [place] % (Auto) 6.7 Eos % (Auto) 0.1 Baso % (Auto) 0.1 Immature Gran # (Auto) 0.07 H Neut # (Auto) 12.23 H Lymph # (Auto) 1.93 [place] # (Auto) 1.03 H Eos # (Auto) 0.02 Baso # (Auto) 0.01 Blood Type O Negative Antibody Screen NEGATIVE Screen Negative Medications Administered Current Inpatient Medications Benzocaine (Dermoplast Pain Relieving [place]) 1 appln EXT UD PRN PRN Reason: use on skin as needed Stop: 02/28/19 11:23 Bisacodyl (Dulcolax) 10 mg [place] PRN PRN PRN Reason: Constipation Stop: 03/02/19 06:33 Cocaine HCl (Supercream 0.870%) 1 gm EXT UD PRN PRN Reason: hemmorrhoidal inflammation Stop: 02/12/19 11:23 Diphenhydramine HCl (Benadryl) 25 mg IV QID PRN PRN Reason: Itching Stop: 03/01/19 00:59 Diphenhydramine HCl (Benadryl Capsule) 25 mg PO QID PRN PRN Reason: Itching Stop: 03/01/19 00:59 Docusate Sodium (Colace) 100 mg PO BID [facility] Stop: 02/28/19 11:23 Last Admin: 01/30/19 20:20 Dose: 100 mg Documented by: Ferrous Sulfate (Feosol) 325 mg PO QAM [facility] Stop: 02/28/19 11:44 Last Admin: 01/30/19 08:18 Dose: 325 mg Documented by: Hydrocortisone (Anusol Hc) 25 mg [place] BID PRN PRN Reason: Hemorrhoids Stop: 02/28/19 11:23 Lactated Ringer's (Lr) 1,000 mls @ 125 mls/hr IV .Q8H [facility] Stop: 02/28/19 11:23 Last Infusion: 01/30/19 01:00 Dose: 0 mls/hr Documented by: Promethazine HCl 25 mg/ Sodium (Chloride) 51 mls @ 204 mls/hr IV Q4H PRN PRN Reason: Nausea And Vomiting Stop: 03/01/19 00:59 Lactated Ringer's (Lr) 1,000 mls @ 125 mls/hr IV .Q8H [facility] Stop: 02/28/19 17:59 Ibuprofen (Motrin) 600 mg PO Q6H PRN PRN Reason: Pain Stop: 03/01/19 08:14 Last Admin: 01/30/19 23:27 Dose: 600 mg Documented by: Ketorolac Tromethamine (Toradol) 30 mg IV Q6H PRN PRN Reason: Pain Stop: 02/03/19 00:59 Magnesium Hydroxide (Milk Of Magnesia) 30 ml PO HS PRN PRN Reason: Constipation Stop: 02/28/19 11:23 Ondansetron HCl (Zofran) 4 mg IV Q4H PRN PRN Reason: Nausea And Vomiting Stop: 03/01/19 00:59 Oxycodone/Acetaminophen (Percocet 5mg/325mg) 1 - 2 tab PO Q4H PRN PRN Reason: Pain Stop: 02/13/19 00:59 Last Admin: 01/31/19 03:26 Dose: 2 tab Documented by: Jessicaat Multivit/[place] Repairer/Iron/Folic Ac ( Vitamin) 1 tab PO QAM [facility] Stop: 02/28/19 11:44 Last Admin: 01/30/19 08:17 Dose: 1 tab Documented by: Sennosides (Senokot) 17.2 mg PO HS PRN PRN Reason: Constipation Stop: 02/28/19 11:23 Simethicone (Mylicon) 80 mg PO QID [facility] Stop: 02/28/19 11:44 Last Admin: 01/30/19 20:20 Dose: 80 mg Documented by: Resident Activity Tracking Resident Involvement: Resident Care Provided Care Provided: OB Delivery
[2019-01-31 07:03] LABS: Hematocrit (blood only) 28.1 % (37-47); Hemoglobin 9.1 g/dL (12.0-16.0)
[2019-01-31] MEDS: DOCUSATE SODIUM 100 MG CAP PO SCH ×2 (08:46→21:06)
[2019-01-31] MEDS: FERROUS SULFATE 325 MG TAB PO SCH (08:46)
[2019-01-31] MEDS: PRENATAL VITAMIN 1 TAB PO SCH (08:46)
[2019-01-31] MEDS: SIMETHICONE 80 MG CHEW PO SCH ×4 (08:46→21:06)
[2019-01-31] MEDS: IBUPROFEN 600 MG TAB PO PRN ×3 (08:47→21:06)
[2019-02-01] MEDS: OXYCODONE/ACETAMINOPHEN 5mg/325mg TAB PO PRN ×5 (01:05→23:29)
[2019-02-01] MEDS: IBUPROFEN 600 MG TAB PO PRN ×3 (06:17→18:17)
--- NOTE | 2019-02-01 06:48 | Obstetrical Progress Note ---
Date of Service <Delvinann-marie Andrade - Last Filed: 02/01/19 06:51> February 01, 2019 Assessment & Plan <Delvin C. AndradeDO - Last Filed: 02/01/19 06:51> (1) Status post section routine follow-up: -vital signs reviewed and WNL -last Hgb 9.1 --> cont ferrous sulfate 325 mg -Blood type: O-, GBS+, Rubella Immune -pt doing well clinically -encourage ambulation, monitor and control pain with motrin tylenol, cont regular diet, monitor lochia -cont encourage breast feeding, will write script for breast pump on d/c Subjective <Delvin Andrade DO - Last Filed: 02/01/19 06:51> 23 y/o POD3 found in bed this morning in NAD. Reports no acute overnight events. Pt states that she has no pain other than appropriate soreness. Tolerating PO intake without N/V. Able to ambulate without issue. She is bottle feeding 2/2 difficulties expressing enough milk from breast, will cont to try. No issues with voiding, no BM yet. No other acute concerns or complaints. Review of Systems All systems reviewed & are unremarkable except as noted in HPI & below Physical Exam <Delvinann-marie Andrade DO - Last Filed: 02/01/19 06:51> Vital Signs (Past 24 Hours) Last Vital Signs Temp 36.7 C 01/31/19 23:25 Pulse 78 01/31/19 23:25 Resp 18 01/31/19 23:25 BP 129/85 01/31/19 23:25 Pulse Ox 98 01/31/19 23:25 Constitutional WD/WN, vitals as above Eyes PERRL, conjunctivae normal, anicteric sclerae ENMT external ear and nose normal, oropharynx normal Respiratory normal respiratory effort, lungs clear to auscultation Cardiovascular RRR, no murmur, no edema Gastrointestinal (Abdomen) mild abd tenderness Incision C/D/I Skin no rashes, warm and dry Psychiatric A+Ox3, euthymic affect Lymphatic no calf tenderness, no LE swelling Results & Data <Delvin Andrade DO - Last Filed: 02/01/19 06:51> Laboratory Results Laboratory Results - last 24 hr 01/31/19 06:29 Hgb 9.1 L Hct 28.1 L Medications Administered Current Inpatient Medications Benzocaine (Dermoplast Pain Relieving [place]) 1 appln EXT UD PRN PRN Reason: use on skin as needed Stop: 02/28/19 11:23 Bisacodyl (Dulcolax) 10 mg [place] PRN PRN PRN Reason: Constipation Stop: 03/02/19 06:33 Cocaine HCl (Supercream 0.870%) 1 gm EXT UD PRN PRN Reason: hemmorrhoidal inflammation Stop: 02/12/19 11:23 Diphenhydramine HCl (Benadryl) 25 mg IV QID PRN PRN Reason: Itching Stop: 03/01/19 00:59 Diphenhydramine HCl (Benadryl Capsule) 25 mg PO QID PRN PRN Reason: Itching Stop: 03/01/19 00:59 Docusate Sodium (Colace) 100 mg PO BID [facility] Stop: 02/28/19 11:23 Last Admin: 01/31/19 21:06 Dose: 100 mg Documented by: Ferrous Sulfate (Feosol) 325 mg PO QAM [facility] Stop: 02/28/19 11:44 Last Admin: 01/31/19 08:46 Dose: 325 mg Documented by: Hydrocortisone (Anusol Hc) 25 mg [place] BID PRN PRN Reason: Hemorrhoids Stop: 02/28/19 11:23 Lactated Ringer's (Lr) 1,000 mls @ 125 mls/hr IV .Q8H [facility] Stop: 02/28/19 11:23 Last Infusion: 01/30/19 01:00 Dose: 0 mls/hr Documented by: Promethazine HCl 25 mg/ Sodium (Chloride) 51 mls @ 204 mls/hr IV Q4H PRN PRN Reason: Nausea And Vomiting Stop: 03/01/19 00:59 Lactated Ringer's (Lr) 1,000 mls @ 125 mls/hr IV .Q8H [facility] Stop: 02/28/19 17:59 Ibuprofen (Motrin) 600 mg PO Q6H PRN PRN Reason: Pain Stop: 03/01/19 08:14 Last Admin: 02/01/19 06:17 Dose: 600 mg Documented by: Ketorolac Tromethamine (Toradol) 30 mg IV Q6H PRN PRN Reason: Pain Stop: 02/03/19 00:59 Magnesium Hydroxide (Milk Of Magnesia) 30 ml PO HS PRN PRN Reason: Constipation Stop: 02/28/19 11:23 Ondansetron HCl (Zofran) 4 mg IV Q4H PRN PRN Reason: Nausea And Vomiting Stop: 03/01/19 00:59 Oxycodone/Acetaminophen (Percocet 5mg/325mg) 1 - 2 tab PO Q4H PRN PRN Reason: Pain Stop: 02/13/19 00:59 Last Admin: 02/01/19 06:18 Dose: 1 tab Documented by: Prenat Multivit/[place]/Iron/Folic Ac ( Vitamin) 1 tab PO QAM [facility] Stop: 02/28/19 11:44 Last Admin: 01/31/19 08:46 Dose: 1 tab Documented by: Sennosides (Senokot) 17.2 mg PO HS PRN PRN Reason: Constipation Stop: 02/28/19 11:23 Simethicone (Mylicon) 80 mg PO QID [facility] Stop: 02/28/19 11:44 Last Admin: 01/31/19 21:06 Dose: 80 mg Documented by: <Misael Fontaine Jr, MD, FACOG - Last Filed: 02/01/19 07:17> Co-Signing Physician Notes Resident Physician Supervision Note: I was present with Dr. Andrade during the history and exam. I discussed the case with the resident and agree with the findings and plan as documented in the note. Any exceptions or clarifications are listed here: Patient doing well, declines d/c till POD #4 Documented By: Misael Fontaine Jr, MD, FACOG Resident Activity Tracking <Delvin Andrade DO - Last Filed: 02/01/19 06:51> Resident Involvement: Resident Care Provided Care Provided: OB Delivery
[2019-02-01] MEDS: PRENATAL VITAMIN 1 TAB PO SCH (08:06)
[2019-02-01] MEDS: DOCUSATE SODIUM 100 MG CAP PO SCH ×2 (08:06→21:26)
[2019-02-01] MEDS: FERROUS SULFATE 325 MG TAB PO SCH (08:06)
[2019-02-01] MEDS: SIMETHICONE 80 MG CHEW PO SCH ×4 (08:07→21:26)
[2019-02-02] MEDS: IBUPROFEN 600 MG TAB PO PRN ×2 (04:31→12:54)
[2019-02-02] MEDS: OXYCODONE/ACETAMINOPHEN 5mg/325mg TAB PO PRN ×3 (04:31→12:53)
--- NOTE | 2019-02-02 06:56 | Obstetrical Progress Note ---
Date of Service <Delvin Andrade - Last Filed: 02/02/19 06:56> February 02, 2019 Assessment & Plan <Delvin Andrade - Last Filed: 02/02/19 06:56> (1) Status post section routine follow-up: -vital signs reviewed and WNL -last Hgb 11.7 -Blood type: O-, GBS+, Rubella Immune -pt doing well clinically -encourage ambulation, monitor and control pain with motrin tylenol, cont regular diet, monitor lochia -cont encourage breast feeding, breast pump script written -plan for d/c today Subjective <Delvin Andrade - Last Filed: 02/02/19 06:56> 23 y/o POD4 found in bed this morning in NAD. Reports no acute overnight events. Pt states that she has no pain other than appropriate soreness. Tolerating PO intake without N/V. Able to ambulate without issue. She is bottle feeding without issue, attempting breast and getting better, initially had little production. No issues with voiding. No other acute concerns or complaints. Review of Systems All systems reviewed & are unremarkable except as noted in HPI & below Physical Exam <Delvin Andrade - Last Filed: 02/02/19 06:56> Vital Signs (Past 24 Hours) Last Vital Signs Temp 36.7 C 02/01/19 23:20 Pulse 80 02/01/19 23:20 Resp 16 02/01/19 23:20 BP 137/96 02/01/19 23:20 Pulse Ox 98 02/01/19 23:20 Constitutional WD/WN, vitals as above Eyes PERRL, conjunctivae normal, anicteric sclerae ENMT external ear and nose normal, oropharynx normal Respiratory normal respiratory effort, lungs clear to auscultation Cardiovascular RRR, no murmur, no edema Gastrointestinal (Abdomen) mild abd tenderness Incision C/D/I Skin no rashes, warm and dry Psychiatric A+Ox3, euthymic affect Lymphatic no LE swelling, no calf tenderness Results & Data <Delvin AndradeDO - Last Filed: 02/02/19 06:56> Medications Administered Current Inpatient Medications Benzocaine (Dermoplast Pain Relieving [place]) 1 appln EXT UD PRN PRN Reason: use on skin as needed Stop: 02/28/19 11:23 Bisacodyl (Dulcolax) 10 mg [place] PRN PRN PRN Reason: Constipation Stop: 03/02/19 06:33 Cocaine HCl (Supercream 0.870%) 1 gm EXT UD PRN PRN Reason: hemmorrhoidal inflammation Stop: 02/12/19 11:23 Diphenhydramine HCl (Benadryl) 25 mg IV QID PRN PRN Reason: Itching Stop: 03/01/19 00:59 Diphenhydramine HCl (Benadryl Capsule) 25 mg PO QID PRN PRN Reason: Itching Stop: 03/01/19 00:59 Docusate Sodium (Colace) 100 mg PO BID [facility] Stop: 02/28/19 11:23 Last Admin: 02/01/19 21:26 Dose: 100 mg Documented by: Ferrous Sulfate (Feosol) 325 mg PO QAM [facility] Stop: 02/28/19 11:44 Last Admin: 02/01/19 08:06 Dose: 325 mg Documented by: Hydrocortisone (Anusol Hc) 25 mg [place] BID PRN PRN Reason: Hemorrhoids Stop: 02/28/19 11:23 Lactated Ringer's (Lr) 1,000 mls @ 125 mls/hr IV .Q8H [facility] Stop: 02/28/19 11:23 Last Infusion: 01/30/19 01:00 Dose: 0 mls/hr Documented by: Promethazine HCl 25 mg/ Sodium (Chloride) 51 mls @ 204 mls/hr IV Q4H PRN PRN Reason: Nausea And Vomiting Stop: 03/01/19 00:59 Lactated Ringer's (Lr) 1,000 mls @ 125 mls/hr IV .Q8H [facility] Stop: 02/28/19 17:59 Ibuprofen (Motrin) 600 mg PO Q6H PRN PRN Reason: Pain Stop: 03/01/19 08:14 Last Admin: 02/02/19 04:31 Dose: 600 mg Documented by: Ketorolac Tromethamine (Toradol) 30 mg IV Q6H PRN PRN Reason: Pain Stop: 02/03/19 00:59 Magnesium Hydroxide (Milk Of Magnesia) 30 ml PO HS PRN PRN Reason: Constipation Stop: 02/28/19 11:23 Ondansetron HCl (Zofran) 4 mg IV Q4H PRN PRN Reason: Nausea And Vomiting Stop: 03/01/19 00:59 Oxycodone/Acetaminophen (Percocet 5mg/325mg) 1 - 2 tab PO Q4H PRN PRN Reason: Pain Stop: 02/13/19 00:59 Last Admin: 02/02/19 04:31 Dose: 1 tab Documented by: Prenat Multivit/[place]/Iron/Folic Ac ( Vitamin) 1 tab PO QAM [facility] Stop: 02/28/19 11:44 Last Admin: 02/01/19 08:06 Dose: 1 tab Documented by: Sennosides (Senokot) 17.2 mg PO HS PRN PRN Reason: Constipation Stop: 02/28/19 11:23 Simethicone (Mylicon) 80 mg PO QID [facility] Stop: 02/28/19 11:44 Last Admin: 02/01/19 21:26 Dose: 80 mg Documented by: <Kristan Grider, - Last Filed: 02/02/19 09:10> Co-Signing Physician Notes I have seen/examined patient. I have read above note performed by resident and I agree with above. Any changes/additions are as follows: POD#4. Physically doing well. Does complain of feeling a bit "tired" and depression symptoms. She has not had depression before, but would like to start on Zoloft. She declines psych consult. We discussed Rx zoloft, given. She will followup within the next 1-2 weeks with psych. She denies suicidal/homicidal/infanticidal ideation. She feels safe for discharge, and has plans to call our office immediately or go to the ER if her symptoms worsen. Discharge instructions reviewed. Kristan Grider DO [facility] [place] Resident Activity Tracking <Delvin Andrade DO - Last Filed: 02/02/19 06:56> Resident Involvement: Resident Care Provided Care Provided: OB Delivery
[2019-02-02] MEDS: SIMETHICONE 80 MG CHEW PO SCH (08:35)
[2019-02-02] MEDS: DOCUSATE SODIUM 100 MG CAP PO SCH (08:35)
[2019-02-02] MEDS: PRENATAL VITAMIN 1 TAB PO SCH (08:35)
[2019-02-02] MEDS: FERROUS SULFATE 325 MG TAB PO SCH (08:35)
[2019-02-02 11:02] VITALS: BP 124/80; PULSE 77; TEMP 98.2; O2SAT 99
--- NOTE | 2019-02-04 12:06 | Discharge Summary ---
Date of Service February 14, 2019 Admission HPI Per Admitting Provider 23yo @ 39 12/21 returns to L&D with complaint of contractions every 6 minutes. She states she has severe pain in her low back that wraps around her right side to her front. She describes this pain as "it comes and goes but is also constant." She has had a kidney stone before, but this does not feel like it. + movement. No vaginal bleeding. No leaking of fluid. Discharge Data Procedures Performed Operation Date: 01/29/19 05:30 Actual Procedures p Section in LD(Bilateral) - Kristan Grider, DO
--- NOTE | 2019-02-13 17:38 | Discharge Summary ---
Date of Service February 13, 2019 Admission HPI Per Admitting Provider 23yo @ 39 12/21 returns to L&D with complaint of contractions every 6 minutes. She states she has severe pain in her low back that wraps around her right side to her front. She describes this pain as "it comes and goes but is also constant." She has had a kidney stone before, but this does not feel like it. + movement. No vaginal bleeding. No leaking of fluid. Discharge Data Procedures Performed PLTCS, removal of paratubal cyst. Operation Date: 01/29/19 05:30 Actual Procedures p Section in LD(Bilateral) - Kristan Grider DO Hospital Course (1) : 23-year-old at 39 weeks 2 days who presented in spontaneous labor. There was difficulty tracing heart tones due to both movement and maternal discomfort with contractions and labor, however heart tones prior to epidural were 140s-150s. Epidural was given, it was still difficult to trace heart tracing, due to movement. Decision was made to place a scalp electrode, with rupture of membranes occurring upon placement of FSE. heart tracing was then found to be in the 150s-160s with moderate variability and accelerations. Patient developed large deep variable decelerations, with the third of these lasting approximately 1.5 minutes down to the 40s. Cervix was still 6 cm, unchanged after 2 hours. At this time, decision was made to proceed to section, due to nonreassuring heart tones. PLTCS performed. DC home POD#4, with rx zoloft per her request. Discharge Instructions Please see DC instructions given to pt.
== END 2019-02-02 14:15 | disposition home or self-care (01) | DRG 785 ==
LOC: OPB 00:13 → 4S1 00:17 → 4S2 09:10
DX: Z37.0 Single live birth; N83.8 Other noninflammatory disorders of ovary, fallopian tube and broad ligament; O62.9 Abnormality of forces of labor, unspecified; O26.893 Other specified pregnancy related conditions, third trimester; Z91.040 Latex allergy status; Z82.49 Family history of ischemic heart disease and other diseases of the circulatory system; O76 Abnormality in fetal heart rate and rhythm complicating labor and delivery; Z87.891 Personal history of nicotine dependence; Z3A.39 39 weeks gestation of pregnancy

== ENCOUNTER 2020-06-17 05:54 | Inpatient (IN) ==
--- NOTE | 2020-06-09 14:08 | PAT Medication Instructions ---
Medication Instructions Date of Service June 09, 2020 Home Medications [id number] fumarate-FA [] 1 tab PO DAILY albuterol sulfate 1 - 2 inh INHALATION UD PRN ferrous sulfate [iron] 325 mg PO DAILY omeprazole magnesium [Prilosec OTC] 20 mg PO QPM ondansetron HCl [Zofran] 4 mg PO UD PRN DO NOT take the morning of surgery [id number] fumarate-FA [] 1 tab PO DAILY ferrous sulfate [iron] 325 mg PO DAILY Take morning of surgery With a small sip of water, OTHERWISE NOTHING TO EAT OR DRINK AFTER MIDNIGHT: albuterol sulfate 1 - 2 inh INHALATION UD PRN (use if needed; please bring with you to hospital day of procedure if possible) ondansetron HCl [Zofran] 4 mg PO UD PRN (if needed) Take evening before surgery albuterol sulfate 1 - 2 inh INHALATION UD PRN (if needed) omeprazole magnesium [Prilosec OTC] 20 mg PO QPM ondansetron HCl [Zofran] 4 mg PO UD PRN (if needed) Other Notes If you have any questions please call us at [phone] or [phone] or [phone] or [phone]
--- NOTE | 2020-06-11 14:59 | Anesthesiology Consultation ---
Date of Service June 11, 2020 Assessment & Plan (1) Encounter for pre-operative examination: *Per PAT assessment on 06/11: Travel screen negative. No known COVID-19 positive contacts. No current COVID-19 related symptoms. Patient scheduled for preop pro tocol COVID-19 testing 06/14 ([facility]). Awaiting results. - Emergency c/s: 01/29/19: easy, atraumatic epidural x1 attempt at L3 (dosed for c/s) Chart Review Chart Review: Acceptable Risk for Surgery (pending preop labs) and Patient seen in Pre Admission Testing Teaching & Discussion Pre-Anesthesia Teaching/Discussion Notes: Instructed NPO after midnight before surgery,except medications with 15 cc of water. Medication instructions provided according to the PAT guidelines. History Surgery Operation Date: 06/17/20 07:30 Proposed Procedures p Repeat Section in LD - Josh Salazar MD Height/Weight Height: 5 ft 5 in Weight: 116.3 kg Allergies Allergy/AdvReac Type Severity Reaction Status Date / Time latex Allergy Unknown Rash Unverified 06/06/20 09:43 thimerosal Allergy Unknown Hives Verified 06/11/20 15:06 Medications Home Medications Medication Instructions Recorded Confirmed Last Taken [id number] fumarate-FA 1 tab PO DAILY 06/06/20 06/06/20 Unknown [] albuterol sulfate 1 - 2 inh INHALATION UD PRN 06/06/20 06/06/20 Unknown ferrous sulfate [iron] 325 mg PO DAILY 06/06/20 06/06/20 Unknown omeprazole magnesium [Prilosec OTC] 20 mg PO QPM 06/06/20 06/06/20 Unknown ondansetron HCl [Zofran] 4 mg PO UD PRN 06/06/20 06/06/20 Unknown Past Medical History Medical History Acid reflux Asthma stable Bladder disorder "small bladder"/s/p childhood bladder surgery Exercise / Class Metabolic Activity III < 4 Walking/Shop/Light housework Past Family History Family History Grandmother (Paternal) Family history of diabetes mellitus Father Hypertension Mother Hypertension Uncle Hypertension Aunt Stroke Past Surgical History Surgical History History of section emergency c/s: 01/29/19: easy, atraumatic epidural x1 attempt at L3 (dosed for c/s) History of gynecologic surgery OVARIAN CYST REMOVED History of tooth extraction History of urologic surgery X2 CHILD/BLADDER [place] teeth removed Past Anesthesia History No Hx of Anesthesia Complications and No Family Hx of Anesthesia Complications History of PONV No Hx of PONV and No Hx of Motion Sickness Social History Smoking Status: Current every day smoker tobacco type: cigarettes Smoking cigarettes per day: 2 CIGS PER DAY/ ADVISED NPO Do You Dip or Chew Tobacco: No Hx Alcohol Use: No Hx Substance Use: No substance use type: does not use Review of Systems Patient denies chest pain, shortness of breath, fever, chills, cough, wheezing, palpitations. Physical Exam Vital Signs VITALS BP 103/70 P 92 TEMP 98.2 SP02 97%RA RESP 16 PHYSICAL Full neck and c-spine range of motion. Full TMJ range of motion. TMD 3 finger breaths Mallampati Score 3 Dentition: missing side Lungs: clear throughout to auscultation Cardiac: regular rate and rhythm, no murmurs noted Spine: normal Extremities: no edema
[2020-06-11 16:18] LABS: Basophils # (auto) 0.02 K/uL (0-0.2); Basophils % (auto) 0.1 %; Eosinophils # (auto) 0.07 K/uL (0-0.5); Eosinophils % (auto) 0.5 %; Hematocrit (blood only) 34.1 % (37-47); Hemoglobin 10.7 g/dL (12.0-16.0); Immature Granulocytes # (auto) 0.08 K/uL (0.00-0.02); Immature Granulocytes % (auto) 0.5 %; Lymphocytes # (auto) 2.46 K/uL (1.2-3.4); Lymphocytes % (auto) 16.8 %; Mean Corpuscular Hemoglobin 25.2 pg (25-34); Mean Corpuscular Hgb Conc 31.4 g/dL (32-36); Mean Corpuscular Volume 80.4 fL (80-100); Mean Platelet Volume 12.7 fL (7.4-10.4); Monocytes # (auto) 0.92 K/uL (0.11-0.59); Monocytes % (auto) 6.3 %; Neutrophils # (auto) 11.07 K/uL (1.4-6.5); Neutrophils % (auto) 75.8 %; Platelet Count 310 K/uL (130-400); RDW Coefficient of Variation 15.3 % (11.5-14.5); RDW Standard Deviation 44.6 fL (36.4-46.3); Red Blood Count 4.24 M/uL (4.2-5.4); White Blood Count 14.62 K/uL (4.8-10.8)
[~2020-06-17 05:54] MED LIST changes: -IBUP-1451 PO; +SODIUM CHLORIDE 0.9% 250 ML IV PRN
[2020-06-17] MEDS ORDERED: LACTATED RINGER'S 1,000 ML IV SCH ×2 (06:00→15:55)
[2020-06-17] MEDS ORDERED: CITRIC ACID/SODIUM CITRATE 15 ML UDC PO SCH (06:00)
[2020-06-17] MEDS ORDERED: CEFAZOLIN 3,000 MG in DEXTROSE 5% 50 ML IV SCH (06:00)
[2020-06-17 06:29] LABS: Basophils # (auto) 0.03 K/uL (0-0.2); Basophils % (auto) 0.2 %; Eosinophils # (auto) 0.11 K/uL (0-0.5); Eosinophils % (auto) 0.7 %; Hemoglobin 10.4 g/dL (12.0-16.0); Immature Granulocytes # (auto) 0.09 K/uL (0.00-0.02); Immature Granulocytes % (auto) 0.6 %; Lymphocytes # (auto) 2.81 K/uL (1.2-3.4); Lymphocytes % (auto) 18.3 %; Mean Corpuscular Hemoglobin 25.8 pg (25-34); Mean Corpuscular Volume 79.4 fL (80-100); Monocytes # (auto) 0.95 K/uL (0.11-0.59); Monocytes % (auto) 6.2 %; Platelet Count 257 K/uL (130-400); RDW Coefficient of Variation 15.3 % (11.5-14.5); RDW Standard Deviation 44.4 fL (36.4-46.3); Red Blood Count 4.03 M/uL (4.2-5.4); White Blood Count 15.39 K/uL (4.8-10.8)
[2020-06-17 06:42] LABS: Mean Corpuscular Hgb Conc 32.5 g/dL (32-36)
[2020-06-17] MEDS ORDERED: fentaNYL citrate 100 MCG/2 ML VIAL ONE (06:49)
[2020-06-17] MEDS ORDERED: MoRPHine SULFATE PF 1 MG/ML 10 ML AMP/VIAL ONE (06:49)
--- NOTE | 2020-06-17 07:21 | History & Physical Bridge Note ---
Date of Service June 17, 2020 History & Physical Bridge Note I have examined the patient, reviewed the History & Physical and in the interval since the performance of the History & Physical I have noted the following changes of clinical significance: no changes noted No complaints No ctxs/ LOF/VB +FM's All questions were answered.
[2020-06-17] MEDS ORDERED: ONDANSETRON INJ 2 MG/ML 2 ML VIAL ONE (12:07)
[2020-06-17] MEDS ORDERED: PHENYLEPHRINE 100MCG/ML 5ML SYR ONE (12:07)
[2020-06-17] MEDS ORDERED: OXYTOCIN 10 UNITS/ML VIAL ONE (12:07)
[2020-06-17] MEDS ORDERED: MoRPHine SULFATE 2 MG/ML CARP IV PRN (12:28)
[2020-06-17] MEDS ORDERED: MoRPHine SULFATE PF 1 MG/ML 10 ML AMP/VIAL INT SPINAL ONE (12:28)
[2020-06-17] MEDS ORDERED: DiphenhydrAMINE HCL 50 MG/ML VIAL IV PRN (12:28)
[2020-06-17] MEDS ORDERED: PROMETHAZINE HCL 25 MG in SODIUM CHLORIDE 0.9% 50 ML IV PRN (12:28)
[2020-06-17] MEDS ORDERED: LACTATED RINGER'S 500 ML IV PRN (12:28)
[2020-06-17] MEDS ORDERED: NALOXONE HCL 0.4 MG/1 ML VIAL/CARP IV PRN (12:28)
[2020-06-17] MEDS ORDERED: ePHEDrine sulfate 50 MG/ML AMP IV PRN (12:28)
[2020-06-17] MEDS ORDERED: NALOXONE HCL 1 MG in SODIUM CHLORIDE 0.9% 1000ML 1,000 ML IV PRN (12:28)
[2020-06-17] MEDS ORDERED: ONDANSETRON INJ 2 MG/ML 2 ML VIAL IV PRN (12:28)
[2020-06-17] MEDS ORDERED: NALOXONE HCL 0.08 MG in SYRINGE 1.8 ML IV PRN (12:28)
[2020-06-17] MEDS ORDERED: NO NARCOTICS OR SEDATIVES SCH (12:30)
[2020-06-17] MEDS ORDERED: DC INTRASPINAL MORPHINE SCH (12:30)
[2020-06-17] MEDS ORDERED: SODIUM CHLORIDE 0.9% 1000ML 1,000 ML IV SCH (12:30)
[2020-06-17] MEDS ORDERED: DiphenhydrAMINE HCL 50 MG/ML VIAL ONE (13:17)
--- NOTE | 2020-06-17 13:31 | Post Operative Brief Note ---
Immediate Post Op Note v1 Date of Surgery June 17, 2020 Pre & Post Diagnosis Operation Date: 06/17/20 07:30 Pre-Op Diagnosis: Previous section that desires repeat section Post-Op Diagnosis: same I identified the patient and participated in the time-out.: Yes Procedure Operation Date: 06/17/20 07:30 Actual Procedures p Repeat Section living male child at 1243(Bilateral) - Josh Madison MD Surgeon Josh Salazar MD Furnace Unloader MARK Guerrero Estimated Blood Loss 600 Findings Consistent with Post-Op Diagnosis Drains Bojorquez Catheter (bojorquez catheter placed after spinal without difficulty. Bojorquez draining clear yellow urine. Urine output to be monitored by anesthesia intraoperatively) Anesthesia Type Spinal Complications none Disposition Accompanied Patient To Recovery: Yes Disposition: L&D
--- NOTE | 2020-06-17 13:40 | Anesthesiology Progress Note ---
Date of Service June 17, 2020 Anesthesia Post Procedure Vital Signs Vital Signs: Temp Pulse Resp BP Pulse Ox 06/17/20 13:36 78 94 06/17/20 13:35 74 103/55 L 96 06/17/20 13:34 71 104/53 L 06/17/20 06:13 36.9 C 83 18 113/62 Transfer of Care Handoff Completed per policy Notes Mental Status: alert / awake / arousable and participated in evaluation Patient Amnestic to Procedure: No Nausea / Vomiting: adequately controlled Pain: adequately controlled Airway Patency, RR, SpO2: stable & adequate BP & HR: stable & adequate Hydration State: stable & adequate Neuraxial Anesthesia: was administered and sensory block is resolving Anesthetic Complications: no major complications apparent and Pt Satisfied with anesthetic care
[2020-06-17] MEDS: KETOROLAC 30 MG/ML VIAL IV PRN (15:08)
[2020-06-17] MEDS ORDERED: DIPHTHERIA/TETANUS/PERTUSSIS 0.5 ML SYR/VIAL IM ONE (15:55)
[2020-06-17] MEDS ORDERED: HYDROCORTISONE ACETATE 25 MG SUPP PR PRN (15:55)
[2020-06-17] MEDS ORDERED: MAGNESIUM HYDROXIDE SUSP 30 ML UDC PO PRN (15:55)
[2020-06-17] MEDS ORDERED: SUPERCREAM 0.870% 15 GM JAR EXT PRN (15:55)
[2020-06-17] MEDS ORDERED: BENZOCAINE 20% AER SPR 82.5 GM CAN EXT PRN (15:55)
[2020-06-17] MEDS ORDERED: SENNA 8.6 MG TAB PO PRN (15:55)
[2020-06-17] MEDS: OXYTOCIN 20 UNITS in LACTATED RINGER'S 1,000 ML IV SCH (16:31)
[2020-06-17] MEDS: SIMETHICONE 80 MG CHEW PO SCH ×2 (17:06→19:29)
[2020-06-17] MEDS ORDERED: CEFAZOLIN 3000MG/72.5 ML BAG IV ONE (19:18)
[2020-06-17] MEDS: PANTOprazole 40 MG TAB PO SCH (19:30)
[2020-06-17] MEDS: DOCUSATE SODIUM 100 MG CAP PO SCH (19:32)
[2020-06-17] MEDS ORDERED: CEFAZOLIN 3000MG 72.5 ML IV ONE (19:45)
[2020-06-17] MEDS: MEPERIDINE HCL 25 MG/ML CARP/VIAL IV PRN (20:58)
[2020-06-18] MEDS: MEPERIDINE HCL 25 MG/ML CARP/VIAL IV PRN (00:10)
[2020-06-18] MEDS: OXYTOCIN 20 UNITS in LACTATED RINGER'S 1,000 ML IV SCH (01:42)
--- NOTE | 2020-06-18 01:51 | Operative Report (OR) ---
DATE OF OPERATION: 06/17/2020 PREOPERATIVE DIAGNOSES: The patient is a 25-year-old G2, P1-0-0-1 at 39 weeks and 1 day of gestation with history of prior section. Declined TOLAC/ ( Trial of labor after / Vaginal after ) Desired repeat section. POSTOPERATIVE DIAGNOSES: The patient is a 25-year-old G2, P1-0-0-1 at 39 weeks and 1 day of gestation with history of prior section. Declined TOLAC/ ( Trial of labor after / Vaginal after ) Desired repeat section. PROCEDURE: Repeat low transverse Ceserean section with Pfannenstiel skin incision. SURGEON: Josh Salazar MD STEEL WELDER: MARK Montoya ESTIMATED BLOOD LOSS: 600 mL DRAINS: Hammond catheter drained 100 mL of clear urine. ANESTHESIA: Spinal, Dr. Quintana. COMPLICATIONS: None. FINDINGS: Baby was a viable male delivered in cephalic presentation. There was a nuchal cord around the neck and the cord around the body and Apgars were 9/9, weight was 3915 grams. Maternal findings, normal uterus, fallopian tubes and ovaries. DESCRIPTION OF PROCEDURE: The patient was taken to the operating room where spinal anesthesia was given without difficulty. She was placed in dorsal supine position with a leftward tilt. She was prepared and draped in usual sterile fashion. A Pfannenstiel skin incision was made from the old incision scar, carried through to the underlying layer of fascia with the Bovie. Fascia was incised in the midline and incision was extended laterally with the help of Marie scissors. Lower aspect of the fascial incision was then grasped with 2 Amita clamps, elevated, underlying rectus muscles were dissected off sharply with Marie scissors and upper aspect of the fascial incision was then grasped with 2 Amita clamps, elevated, underlying rectus muscles were dissected off sharply with Marie scissors. Rectus muscles were in the midline. Peritoneum was identified, entered bluntly with fingers. Peritoneal incision was extended superiorly and inferiorly with good visualization of the bladder and omentum underneath. Fingers were placed under the peritoneum to push the omentum back. Then the incision was extended manually with gentle traction. The bladder blade was inserted. Vesicouterine peritoneum was identified, grasped with pickups, entered sharply with Metzenbaum scissors and bladder flap was created digitally and bladder blade was reinserted. The lower uterine segment was incised in transverse fashion. Incision was extended with the help of fingers. Membranes were ruptured. Clear fluid was obtained. Baby's head was delivered without difficulty. The shoulders were delivered with minimal traction There was a nuchal cord and the same cord around the body and during delivery those were reduced. The cord was clamped x2 and cut at 1 minute delay and the baby was handed to the waiting pediatric team, Dr. Davis. Placenta was delivered manually as intact and complete. Uterus was exteriorized, cleared of all clots and debris. The uterine incision was repaired with 0 Vicryl in a running locked fashion. A second imbricating layer was placed with 0 Vicryl in a running locked fashion. Excellent hemostasis was achieved. Cul-de-sac was irrigated with warm normal saline and suctioned. Ovaries and fallopian tubes were noted to be normal and the incision was checked to be again hemostatic. Uterus was returned to the abdomen. The pelvis was irrigated with warm normal saline and suctioned. Incision was checked to be again hemostatic. Parietal peritoneum was reapproximated with 3-0 Vicryl in a running fashion and continued with the muscular layer in a running fashion and the rectus fascia was reapproximated with #1 Vicryl in a running fashion and subcuticular fat tissue was reapproximated with 3-0 Vicryl in a running fashion. Skin was closed with 4-0 Monocryl in a subcuticular fashion. The patient tolerated the procedure well. Sponge, lap, needle count was correct x3. No complications happened and I was present during whole procedure. The patient was given 3 grams of cefazolin before surgery. She was taken to recovery room in stable condition. My assistants were needed for uterine manipulation, retraction for tissue exposure and handling of laparoscope and laparoscopic instruments to ensure adequate visualization, gentle tissue manipulation and hemostasis. I attest to the content of the Intraoperative Record and any orders documented therein. Any exceptions are noted below. ROB
[2020-06-18] MEDS: KETOROLAC 30 MG/ML VIAL IV PRN (04:02)
[2020-06-18] MEDS ORDERED: DiphenhydrAMINE HCL 50 MG/ML VIAL IV PRN (06:29)
[2020-06-18] MEDS ORDERED: PROMETHAZINE HCL 25 MG in SODIUM CHLORIDE 0.9% 50 ML IV PRN (06:29)
[2020-06-18] MEDS ORDERED: ONDANSETRON INJ 2 MG/ML 2 ML VIAL IV PRN (06:29)
[2020-06-18] MEDS ORDERED: KETOROLAC 30 MG/ML VIAL IV PRN (06:29)
[2020-06-18 06:52] LABS: Basophils # (auto) 0.03 K/uL (0-0.2); Basophils % (auto) 0.2 %; Eosinophils # (auto) 0.13 K/uL (0-0.5); Hematocrit (blood only) 29.1 % (37-47); Hemoglobin 9.3 g/dL (12.0-16.0); Immature Granulocytes # (auto) 0.06 K/uL (0.00-0.02); Immature Granulocytes % (auto) 0.5 %; Lymphocytes # (auto) 1.84 K/uL (1.2-3.4); Mean Corpuscular Hemoglobin 25.4 pg (25-34); Mean Corpuscular Volume 79.5 fL (80-100); Mean Platelet Volume 11.8 fL (7.4-10.4); Monocytes % (auto) 7.6 %; Neutrophils # (auto) 10.09 K/uL (1.4-6.5); Neutrophils % (auto) 76.7 %; Platelet Count 226 K/uL (130-400); RDW Coefficient of Variation 15.3 % (11.5-14.5); RDW Standard Deviation 44.8 fL (36.4-46.3); Red Blood Count 3.66 M/uL (4.2-5.4); White Blood Count 13.15 K/uL (4.8-10.8)
[2020-06-18] MEDS: DOCUSATE SODIUM 100 MG CAP PO SCH ×2 (08:55→20:24)
[2020-06-18] MEDS: PRENATAL VITAMIN 1 TAB PO SCH (08:55)
[2020-06-18] MEDS: SIMETHICONE 80 MG CHEW PO SCH ×3 (08:55→20:24)
[2020-06-18] MEDS: OXYCODONE/ACETAMINOPHEN 5mg/325mg TAB PO PRN ×4 (08:55→21:46)
[2020-06-18] MEDS: FERROUS SULFATE 325 MG TAB PO SCH (08:55)
[2020-06-18] MEDS ORDERED: NON-FORMULARY MEDICATION (Pnv133-Ferrous Fumarate-Fa [Prenatal] 1 TAB) PO SCH (09:00)
[2020-06-18] MEDS ORDERED: FERROUS SULFATE 325 MG TAB PO SCH (09:00)
--- NOTE | 2020-06-18 09:08 | Obstetrical Progress Note ---
Date of Service June 18, 2020 Assessment & Plan Admission and Anticipated Discharge Date Admission Date: June 17, 2020 Physical Exam Physical Exam: abdomen soft and non tender bandage removed incision is clean and dry no calf tenderness passing flatus vaginal bleeding scant hgb 9.3 Results & Data ([facility]) Vital Signs (Past 12 Hours) Vital Signs Temp Pulse Pulse Resp BP BP Pulse Ox 06/18/20 08:52 36.9 C 84 16 106/54 L 100 06/18/20 06:03 16 100 06/18/20 05:00 16 98 06/18/20 04:00 36.9 C 76 16 104/68 98 06/18/20 03:00 16 99 06/18/20 02:00 16 97 06/18/20 01:00 18 100 06/17/20 22:55 36.7 C 79 16 103/66 100 06/17/20 22:14 16 100
[2020-06-18] MEDS: IBUPROFEN 600 MG TAB PO PRN ×3 (14:02→21:46)
[2020-06-18] MEDS ORDERED: bisacodyL 5 MG TABEC PO SCH (20:00)
[2020-06-18] MEDS: PANTOprazole 40 MG TAB PO SCH (20:26)
[2020-06-19] MEDS: OXYCODONE/ACETAMINOPHEN 5mg/325mg TAB PO PRN ×3 (01:54→09:02)
[2020-06-19] MEDS: IBUPROFEN 600 MG TAB PO PRN ×3 (01:55→09:01)
[2020-06-19 06:39] LABS: Hematocrit (blood only) 27.5 % (37-47); Hemoglobin 9.1 g/dL (12.0-16.0)
[2020-06-19] MEDS: DOCUSATE SODIUM 100 MG CAP PO SCH (07:53)
[2020-06-19] MEDS: SIMETHICONE 80 MG CHEW PO SCH (07:53)
[2020-06-19] MEDS: FERROUS SULFATE 325 MG TAB PO SCH (07:54)
[2020-06-19] MEDS: PRENATAL VITAMIN 1 TAB PO SCH (07:54)
--- NOTE | 2020-06-19 09:01 | Obstetrical Progress Note ---
Date of Service June 19, 2020 Assessment & Plan Admission and Anticipated Discharge Date Admission Date: June 17, 2020 Review of Systems Review of Systems: All systems reviewed & are unremarkable except as noted in HPI & below Physical Exam Constitutional: WD/WN, vitals as above well developed and well nourished Eyes: PERRL, conjunctivae normal, anicteric sclerae ENMT: external ear and nose normal, oropharynx normal Neck: trachea midline, no thyromegaly Respiratory: normal respiratory effort, lungs clear to auscultation Cardiovascular: RRR, no murmur, no edema Chest (Breasts): normal inspection/palpation of breasts Gastrointestinal (Abdomen): normal bowel sounds, soft, nontender, no hep atosplenomegaly Musculoskeletal: no cyanosis or clubbing, extremities motor strength 5/5 Skin: no rashes, warm and dry + incision (Clean,dry and intact) Neurologic: patellar DTR's 2+ bilat, sensation intact Psychiatric: A+Ox3, euthymic affect Genitourinary: normal external appearance Lymphatic: no cervical or axillary lymphadenopathy Results & Data ([facility]) Vital Signs (Past 12 Hours) Vital Signs Temp Pulse Resp BP Pulse Ox 06/19/20 08:00 36.4 C L 69 18 106/68 98 06/18/20 23:15 36.6 C 75 16 104/64 98
--- NOTE | 2020-06-19 09:03 | Obstetrical Progress Note ---
Date of Service June 19, 2020 Assessment & Plan (1) delivery delivered: c/sec day #2 pt doing well wishes to be disch home Subjective Ambulation: ambulating normally Voiding: no voiding problems Passing Gas:: Yes Diet Tolerance:: clear liquids Lochia:: Small Feeding Type:: breast feeding Review of Systems All systems reviewed & are unremarkable except as noted in HPI & below Physical Exam Constitutional WD/WN, vitals as above well developed and well nourished Eyes PERRL, conjunctivae normal, anicteric sclerae ENMT external ear and nose normal, oropharynx normal Neck trachea midline, no thyromegaly Respiratory normal respiratory effort, lungs clear to auscultation Cardiovascular RRR, no murmur, no edema Chest (Breasts) normal inspection/palpation of breasts Gastrointestinal (Abdomen) normal bowel sounds, soft, nontender, no hepatosplenomegaly Musculoskeletal no cyanosis or clubbing, extremities motor strength 5/5 Skin no rashes, warm and dry + incision (Clean,dry and intact) Neurologic patellar DTR's 2+ bilat, sensation intact Psychiatric A+Ox3, euthymic affect Genitourinary normal external appearance Lymphatic no cervical or axillary lymphadenopathy Results & Data Vital Signs (Past 12 Hours) Vital Signs Temp Pulse Resp BP Pulse Ox 06/19/20 08:00 36.4 C L 69 18 106/68 98 06/18/20 23:15 36.6 C 75 16 104/64 98
[2020-06-19] MEDS ORDERED: bisacodyL 10 MG SUPP PR PRN (13:39)
--- NOTE | 2020-07-02 14:03 | Discharge Summary (DS) ---
DETAILS OF ADMISSION: The patient is a 25-year-old G2, P1-0-1-1 at 39 weeks and 1 day of gestation with history of prior . She declined TOLAC/ and desired repeat . It was scheduled for 06/17/2020. She was admitted and then surgery was completed as scheduled. She delivered a viable male infant. Apgars were 9/9. No complications happened. See dictated op note for details. On postop period the patient was doing well. Vital signs stable, afebrile. Urine output was good. Pain was under control with medications. On postop day #1, the patient was doing well. Vital signs stable, afebrile. Abdomen soft, nontender. Incision was clean, dry and intact. She was passing gas. She was advanced to regular diet, ambulated. Her hemoglobin was 9.3. On postop day #2, the patient was doing well. Vital signs stable, afebrile. Physical exam was unremarkable. Incision was clean, dry and intact. She was passing gas, ambulating, tolerating a regular diet. She desired to be discharged on postoperative day #2. Discharge instructions were given. Prescriptions were written for pain. She is to be seen in office in a week.
== END 2020-06-19 12:10 | disposition home or self-care (01) | DRG 788 ==
LOC: 4S1 05:54 → EDSTATUS 07:30 → 4S2 16:42